=== PATIENT | female | born 1980 | race Caucasian/White ===

== ENCOUNTER 2020-05-19 11:36 | Outpatient (CLI) | payer OTHER, SELFPAY ==
--- NOTE | ~2020-05-19 | XR_ITS ---
EXAMINATION: XR knee LT 2V DATE: 05/19/2020 12:17 INDICATION: Left knee pain. TECHNIQUE: 2 views of left knee were obtained. COMPARISON: None. FINDINGS: Bone alignment is normal. No fracture. There is mild tricompartmental osteoarthritis. No kn ee joint effusion. IMPRESSION: 1. Mild left knee osteoarthritis. Reviewed, dictated and finalized at location A. [employer] LAWYER
== END 2020-05-19 11:37 | disposition home or self-care (01) ==
PROVIDERS: PCP Nurse Practitioner Family; Visit Provider Nurse Practitioner Family
DX: M25.562 Pain in left knee (principal)
CPT/HCPCS: 73560

== ENCOUNTER 2020-08-18 11:45 | Outpatient (CLI) | payer OTHER, SELFPAY ==
--- NOTE | ~2020-08-18 | XR_ITS ---
EXAMINATION: XR knee RT 3V DATE: 08/18/2020 13:28 INDICATION: Right knee pain. TECHNIQUE: 3 views of right knee were obtained. COMPARISON: None. FINDINGS: Bone alignment is normal. No fracture. There is mild tricompartmental osteoarthritis. There is a moderate-sized knee joint effusion. IMPRESSION: 1. Mild right knee osteoarthritis. 2. Moderate-sized right knee joint effusion. Reviewed, dictated and finalized at location A.
== END 2020-08-18 11:46 | disposition home or self-care (01) ==
LOC: CHSIMG 11:48
PROVIDERS: PCP Nurse Practitioner Family; Visit Provider Nurse Practitioner Family
DX: M25.561 Pain in right knee (principal)
CPT/HCPCS: 73562

== ENCOUNTER 2020-09-05 09:04 | Outpatient (CLI) | payer OTHER, SELFPAY ==
--- NOTE | ~2020-09-05 | MR_ITS ---
EXAMINATION: MR knee RT wo con DATE: 09/05/2020 10:29 INDICATION: Right knee joint effusion and pain. TECHNIQUE: Magnetic resonance imaging (MRI) of the right knee knee was performed without intravenous contrast. Sequences included axial PD-weighted FS FSE, coronal PD-weighted FSE and PD-weighted FS FSE , sagittal PD-weighted FSE, and sagittal T2-weighted FS FSE. COMPARISON: Right knee radiographs 08/18/2020 FINDINGS: Medial compartment: Medial meniscus is normal. There is deep partial thickness cartilage loss of tibial condyle anteromed ially with mild subchondral edema-like marrow signal intensity. There is full-thickness cartilage los s and deep partial thickness cartilage loss of femoral condyle involving the central and posterior ar ticular surface with mild subchondral edema-like marrow signal intensity. Lateral compartment: Lateral meniscus is normal. There is cartilage surface regularity of tibial condyle. Femoral cartilag e is normal. There are tiny marginal osteophytes. Patellofemoral compartment: There is deep partial thickness cartilage loss of patellar medial and lateral facets. There is cartil age surface irregularity of trochlea. Osteophytes are noted. Ligaments and tendons: Anterior and posterior cruciate ligaments are normal. Medial collateral ligament demonstrates increas ed signal intensity and surrounding edema, consistent with sprain. There are changes of prior sprain of fibular collateral ligament characterized by increased signal intensity proximally. There is mild patellar tendinopathy. Fluid: There is a moderate-sized knee joint effusion. There is trace fluid in a Malik's cyst. There is mild prepatellar and superficial infrapatellar bursitis. IMPRESSION: 1. Severe chondrosis of medial compartment, moderate chondrosis of patellofemoral compartment, and mi ld chondrosis of lateral compartment. 2. Moderate-sized knee joint effusion. Reviewed, dictated and finalized at location A. IMPRESSION: 1. Severe chondrosis of medial compartment, moderate chondrosis of patellofemor al compartment, and mild chondrosis of lateral compartment. 2. Moderate-sized knee joint effusion.
== END 2020-09-05 09:05 | disposition home or self-care (01) ==
LOC: CHSIMG 09:06
PROVIDERS: PCP Family Medicine; Visit Provider Family Medicine
DX: M25.461 Effusion, right knee (principal)
CPT/HCPCS: 73721

== ENCOUNTER 2020-11-29 23:29 | Emergency (ER) | payer OTHER, SELFPAY ==
[2020-11-29 23:29] VITALS: BP 130/92; PULSE 93; RESP 20; TEMP 36.3; O2SAT 97
--- NOTE | 2020-11-29 23:45 | ED.LOWEXIN ---
HPI - Extremity Injury (Lower) General Chief Complaint: Extremity Injury, Lower Stated Complaint: RIGHT KNEE PAIN Time Seen by Provider: 11/29/20 23:31 Source: patient and RN notes reviewed Mode of arrival: ambulatory Limitations: no limitations History of Present Illness complaint: knee injury Onset (ago): day(s) (3) Type of Injury: hyperflexion Place: home Severity: mild Severity scale (1-10): 6 Relieving factors: rest Exacerbating factors: weight bearing and movement Other symptoms: none Treatments prior to arrival: NSAIDS Related Data Allergies Allergy/AdvReac Type Severity Reaction Status Date / Time Penicillins Allergy Intermediate unknown Verified 11/29/20 22:29 Review of Systems Review of Systems: All systems reviewed & are unremarkable except as noted in HPI and below Constitutional: Constitutional: Reports as per HPI and Reports no additional constitutional complaints Eyes: Eyes: Reports as per HPI and Reports no additional eye complaints ENT: Reports system reviewed and no additional complaints, except as documented and Reports as per HPI Cardiovascular: Cardiovascular: Reports as per HPI and Reports no additional cardiovascular complaints Respiratory: Respiratory: Reports as per HPI and Reports no additional respiratory complaints Gastrointestinal: Gastrointestinal: Reports as per HPI and Reports no additional gastrointestinal complaints Genitourinary: Genitourinary: Reports no additional female genitourinary complaints and Reports as per HPI Musculoskeletal: Musculoskeletal: Reports no additional musculoskeletal complaints and Reports as per HPI Integumentary/Breasts: Skin/Breast: Reports system reviewed and no additional complaints, except as docu and Reports as per HPI Neurologic: Reports system reviewed and no additional complaints, except as documented and Reports as per HPI Psychiatric: Psychiatric: Reports no additional psychiatric complaints and Reports as per HPI Endocrine: Endocrine: Reports no additional endocrine complaints and Reports as per HPI Hematologic/Lymphatic: Hematologic/Lymphatic: Reports no additional hematologic/lymphatic complaints and Reports as per HPI Allergic/Immunologic: Allergic/Immunologic: Reports no additional allergic/immunologic complaints and Reports as per HPI PMFSH Past Medical History Medical History (Updated 11/30/20 @ 00:09 by Jefe Casey MD) Acute sinusitis Asthma Knee sprain Mild sleep apnea Surgical History Surgical History No significant past surgical history Social History Social History Smoking status: Never smoker Tobacco type: cigarettes Exam Const: General: healthy appearing, no acute distress and alert Orientation/consciousness: patient oriented x3 HENMT: Head: normal to inspection Ears: external ears normal and TM's normal bilaterally General nose exam: Normal external nose present and Normal nares present Mouth: Yes moist mucous membranes Teeth and gingiva: dentition normal Eyes: General: appearance normal, both eyes and all related structures Conjunctivae: conjunctivae normal Pupils: Equal, round and reactive pupils present EOM: EOMs intact bilaterally Neck: Neck: normal visual inspection Chest: Chest palpation & inspection: normal inspection of the chest Resp: Effort & Inspection: normal respiratory effort Auscultation: clear to auscultation bilaterally Cardio: Rate: regular rate Rhythm: regular rhythm GI: GI Palp: Yes Soft to palpation Percussion: Yes normal to percussion Auscultation: normal bowel sounds : General: Yes no CVA tenderness Back/Spine/Pelvis: Back: no CVA tenderness Skin: General skin exam: normal color Rashes: no rashes Neuro: General: patient oriented x3, moves all extremities, no focal motor deficits and CN's II-XI intact bilaterally Extrem: General: normal to
[2020-11-29] MEDS: KETOROLAC (*BKC) 60 MG/2 ML VIAL IM (23:50)
[2020-11-29 23:55] VITALS: BP 130/92; PULSE 93; RESP 20; TEMP 36.6; O2SAT 97
--- NOTE | 2020-11-30 00:19 | PC.NURSE ---
RN WALKED PT OUT TO PERSONAL VEHICLE. TOLERATED WELL.
== END 2020-11-30 00:19 | disposition home or self-care (01) ==
PROVIDERS: Emergency Provider Emergency Medicine; PCP Nurse Practitioner Family
DX: S83.8X1A Sprain of other specified parts of right knee, initial encounter (principal)
CPT/HCPCS: 96372; 99283; J1885

== ENCOUNTER 2021-04-08 11:53 | Outpatient (CLI) | payer OTHER, SELFPAY ==
[2021-04-08 14:24] LABS: SARS-CoV-2 RNA PCR Negative (Negative)
== END 2021-04-08 11:54 | disposition home or self-care (01) ==
LOC: CHSLAB 11:56
PROVIDERS: PCP Nurse Practitioner Family; Visit Provider Nurse Practitioner Family
DX: Z20.822 Contact with and (suspected) exposure to COVID-19 (principal)
CPT/HCPCS: C9803; U0003; U0005

== ENCOUNTER 2021-04-26 12:15 | Outpatient (CLI) | payer OTHER, SELFPAY ==
[2021-04-26 14:36] LABS: SARS-CoV-2 RNA PCR Positive (Negative)
== END 2021-04-26 12:16 | disposition home or self-care (01) ==
LOC: CHSLAB 12:17
PROVIDERS: PCP Family Medicine; Visit Provider Family Medicine
DX: U07.1 COVID-19 (principal)
CPT/HCPCS: C9803; U0003; U0005

== ENCOUNTER 2021-05-03 12:12 | Outpatient (CLI) | payer OTHER, SELFPAY ==
[2021-05-03 12:44] LABS: Basophils Absolute Auto 0.01 K/mm3 (0.00-0.10); Basophils Percent Auto 0.1 % (0.0-1.0); Eosinophils Absolute Auto 0.06 K/mm3 (0.02-0.50); Eosinophils Percent Auto 0.7 % (1.0-6.0); Hematocrit 33.3 % (35.0-49.0); Hemoglobin 9.8 g/dL (12.0-15.0); Immature Granulocyte Absolute 0.02 K/mm3 (0.00-0.00); Immature Granulocyte Percent A 0.2 % (0.0-0.0); Lymphocytes Absolute Auto 1.53 K/mm3 (1.10-4.50); Lymphocytes Percent Auto 18.4 % (18.0-42.0); Mean Corpuscular HGB Conc 29.4 g/dL (32.0-36.0); Mean Corpuscular Hemoglobin 22.2 pg (27.0-31.0); Mean Corpuscular Volume 75.3 fL (78.0-102.0); Mean Platelet Volume 10.2 fl (9.2-11.8); Monocytes Absolute Auto 0.67 K/mm3 (0.10-0.90); Monocytes Percent Auto 8.1 % (2.0-11.0); Neutrophils Percent Auto 72.5 % (50.0-70.0); Platelet Count Result 362 K/mm3 (150-420); Red Blood Count 4.42 M/mm3 (4.20-5.40); Red Cell Distribution Width 16.3 % (11.6-14.4); White Blood Count 8.3 K/mm3 (4.8-10.8)
[2021-05-03 13:25] LABS: Alanine Aminotransferase 17 U/L (14-59); Albumin Level 3.6 g/dL (3.4-5.0); Alkaline Phosphatase 89 U/L (46-116); Anion Gap 9 mmol/L (8-16); Aspartate Amino Transferase 13 U/L (15-37); Bilirubin,Total 0.3 mg/dL (0.00-1.00); Blood Urea Nitrogen 6 mg/dL (7-18); Calcium 8.8 mg/dL (8.5-10.1); Carbon Dioxide 28 mmol/L (21-32); Chloride 100 mmol/L (98-108); Estimated Glomerular Filt Rate > 60; Glucose 95 mg/dL (70-99); Magnesium 2.3 mg/dL (1.8-2.4); Osmolality Calculated 281 mOsm/kg (285-295); Potassium 3.9 mmol/L (3.5-5.1); Sodium 137 mmol/L (136-145); Total Protein 7.4 g/dL (6.4-8.2); Vitamin B12 268 pg/mL (193-986)
[2021-05-03 16:10] LABS: Immature Reticulocyte Fraction 24.2 % (2.0-16.52); Reticulocyte Hemoglobin Conten 24.1 pg (28.0-35.0); Reticulocyte Percent 0.98 % (0.50-1.50); Reticulocytes Absolute 0.04 M/mm3 (0.02-0.1)
[2021-05-03 16:31] LABS: Ferritin 19 ng/mL (8-252)
[2021-05-03 17:40] LABS: Iron 16 ug/dL (50-170); Percent Iron Saturation 4 % (12-57)
[2021-05-06 03:00] LABS: Vitamin D 25 Hydroxy 34 ng/mL (30-100)
[2021-05-06 12:04] LABS: Red Blood Cell Folate 733 ng/mL RBC (>280)
== END 2021-05-03 12:13 | disposition home or self-care (01) ==
LOC: CHSLAB 12:17
PROVIDERS: PCP Nurse Practitioner Family; Visit Provider Nurse Practitioner Family
DX: R53.1 Weakness (principal); D64.9 Anemia, unspecified; Z79.899 Other long term (current) drug therapy
CPT/HCPCS: 36415; 80053; 82306; 82607; 82728; 82747; 83540; 83550; 83735; 85025; 85046

== ENCOUNTER 2022-12-08 16:46 | Outpatient (CLI) | payer OTHER, SELFPAY ==
[2022-12-08 17:33] LABS: Strep Group A RT-PCR DETECTED (Negative)
== END 2022-12-08 16:47 | disposition home or self-care (01) ==
LOC: CHSLAB 16:47
PROVIDERS: PCP Nurse Practitioner Family; Visit Provider Nurse Practitioner Family
DX: J02.9 Acute pharyngitis, unspecified (principal)
CPT/HCPCS: 87651

== ENCOUNTER 2023-01-17 11:44 | Outpatient (CLI) | payer OTHER, SELFPAY ==
[2023-01-17 11:58] LABS: Basophils Absolute Auto 0.01 K/mm3 (0.00-0.10); Basophils Percent Auto 0.1 % (0.0-1.0); Eosinophils Absolute Auto 0.08 K/mm3 (0.02-0.50); Eosinophils Percent Auto 1.1 % (1.0-6.0); Hemoglobin 9.7 g/dL (12.0-15.0); Immature Granulocyte Absolute 0.03 K/mm3 (0.00-0.00); Immature Granulocyte Percent A 0.4 % (0.0-0.0); Lymphocytes Absolute Auto 1.49 K/mm3 (1.10-4.50); Lymphocytes Percent Auto 20.5 % (18.0-42.0); Mean Corpuscular HGB Conc 30.3 g/dL (32.0-36.0); Mean Corpuscular Hemoglobin 23.4 pg (27.0-31.0); Mean Corpuscular Volume 77.3 fL (78.0-102.0); Mean Platelet Volume 10.2 fl (9.2-11.8); Monocytes Absolute Auto 0.64 K/mm3 (0.10-0.90); Monocytes Percent Auto 8.8 % (2.0-11.0); Neutrophils Percent Auto 69.1 % (50.0-70.0); Platelet Count Result 334 K/mm3 (150-420); Red Blood Count 4.14 M/mm3 (4.20-5.40); Red Cell Distribution Width 16.6 % (11.6-14.4); White Blood Count 7.3 K/mm3 (4.8-10.8)
[2023-01-17 12:38] LABS: Hemoglobin A1C 6.2 % (<5.7)
[2023-01-17 12:44] LABS: Carbon Dioxide 26 mmol/L (21-32); Chloride 105 mmol/L (98-108); Sodium 138 mmol/L (136-145)
[2023-01-17 12:45] LABS: Albumin Level 3.3 g/dL (3.4-5.0); Alkaline Phosphatase 84 U/L (46-116); Anion Gap 7 mmol/L (8-16); Aspartate Amino Transferase < 10 U/L (15-37); Bilirubin,Total 0.4 mg/dL (0.00-1.00); Blood Urea Nitrogen 11 mg/dL (7-18); Estimated Glomerular Filt Rate > 60; Glucose 99 mg/dL (70-99); Osmolality Calculated 285 mOsm/kg (285-295); Total Protein 6.7 g/dL (6.4-8.2)
[2023-01-17 12:57] LABS: Alanine Aminotransferase 14 U/L (14-59)
[2023-01-18 14:23] LABS: Immature Reticulocyte Fraction 22.6 % (2.0-16.52); Reticulocyte Percent 1.58 % (0.50-1.50); Reticulocytes Absolute 0.07 M/mm3 (0.02-0.1)
[2023-01-18 14:51] LABS: Folic Acid 11.6 ng/mL (8.6->20); Iron 21 ug/dL (50-170); Percent Iron Saturation 5 % (12-57); Vitamin B12 117 pg/mL (193-986)
== END 2023-01-17 11:45 | disposition home or self-care (01) ==
LOC: CHSLAB 11:47
PROVIDERS: PCP Nurse Practitioner Family; Visit Provider Nurse Practitioner Family
DX: R10.811 Right upper quadrant abdominal tenderness (principal); R53.1 Weakness; D64.9 Anemia, unspecified; Z83.3 Family history of diabetes mellitus
CPT/HCPCS: 36415; 80053; 82607; 82746; 83036; 83540; 83550; 85025; 85046

== ENCOUNTER 2023-01-31 07:53 | Outpatient (CLI) | payer OTHER, SELFPAY ==
--- NOTE | ~2023-01-31 | US_ITS ---
US abdomen complete EXAMINATION: US Abdomen Complete INDICATION: Right upper quadrant pain PROCEDURE: Realtime High Resolution abdomen ultrasound. COMPARISON: No prior studies for comparison FINDINGS: Gallbladder within normal limits. No gallstones, pericholecystic fluid, gallbladder wall t hickening or biliary dilatation. Common bile duct measures 2.4 mm. Liver echotexture is increased, consistent with fatty infiltration.. Pancreas within normal limits. Pancreatic tail is obscured by bowel gas. Spleen is upper normal measuring 12.7 cm. Renal echotextu re is within normal limits bilaterally without hydronephrosis, contour deforming mass or renal stone. Right kidney measures 10 cm. Left kidney measures 11.1 cm. There is a left renal cyst measuring 1.9 cm. Visualized aspects of the aorta and IVC are within normal limits. Portal vein is patent. No sonograph ic Bal's sign indicated by the technologist. IMPRESSION: 1: Hepatic steatosis. 2: Left renal cyst measuring 1.9 cm. Reviewed, dictated and finalized at location L.
[2023-01-31 08:16] VITALS: BMI 37.0
[2023-01-31 08:29] VITALS: BP 121/78; PULSE 72; RESP 14; TEMP 36.6; O2SAT 100
[2023-01-31] MEDS: IRON SUCROSE COMPLEX 300 MG in SODIUM CHLORIDE 0.9% IV 250 ML 166.67 MG IVPB (08:30)
--- NOTE | 2023-01-31 10:06 | PC.NURSE ---
Patient here for #1 of 3 IV Venofer infusions. Education given. All concerns answered. IV Venofer administered. SEE MAR. Tolerated well. Safe exit hospital per self/ambulatory. Will return 02/02/23 at 4:30 pm for #2.
== END 2023-01-31 07:54 | disposition home or self-care (01) ==
LOC: CHSTREATRM 07:55
PROVIDERS: PCP Nurse Practitioner Family; Visit Provider Nurse Practitioner Family
DX: R10.811 Right upper quadrant abdominal tenderness (principal); D50.9 Iron deficiency anemia, unspecified
CPT/HCPCS: 76700; 96365; 96366; J1756; J7050

== ENCOUNTER 2023-02-02 17:24 | Outpatient (CLI) | payer OTHER, SELFPAY ==
[2023-02-02] MEDS: IRON SUCROSE COMPLEX 200 MG in SODIUM CHLORIDE 0.9% IV 250 ML 250 MG IVPB (18:00)
--- NOTE | 2023-02-02 18:04 | PC.NURSE ---
Patient arrived at 1730 instead of 1830 due to traffic. 22 gauge IV inserted in x1 attempt to right upper arm. IV infusion stated. Pateint denies changes in medications.
--- NOTE | 2023-02-02 18:39 | PC.NURSE ---
Patient watching TV and sitting in recliner. Denies any problems. Requested to use bathroom Nurse assisted to bathroom.
--- NOTE | 2023-02-02 19:10 | PC.NURSE ---
Patient's IV infusion completed. Patient denied any pain or SOB. IV site discontinued with IV intact. Pressure applied to site then pressure dressing applied. Patient able to ambulate to car.
== END 2023-02-02 17:25 | disposition home or self-care (01) ==
LOC: CHSTREATRM 17:26
PROVIDERS: PCP Nurse Practitioner Family; Visit Provider Nurse Practitioner Family
DX: D50.9 Iron deficiency anemia, unspecified (principal)
CPT/HCPCS: 96365; J1756; J7050

== ENCOUNTER 2023-02-09 15:30 | Outpatient (CLI) | payer OTHER, SELFPAY ==
--- NOTE | 2023-02-09 16:25 | PC.NURSE ---
Patient here for IV Venofer. Tolerated IV start well. Sitting up in chair resting. Call light and belongings at side.
[2023-02-09] MEDS: IRON SUCROSE COMPLEX 200 MG in SODIUM CHLORIDE 0.9% IV 250 ML 250 MG IVPB (16:33)
--- NOTE | 2023-02-09 17:40 | PC.NURSE ---
Patient tolerated infusion well. IV site discontinued, catheter removed tip intact. dressing applied to site. Patient denies any needs at this time. Left floor ambulatory.
== END 2023-02-09 15:31 | disposition home or self-care (01) ==
LOC: CHSTREATRM 02-10 13:12
PROVIDERS: PCP Nurse Practitioner Family; Visit Provider Nurse Practitioner Family
DX: D50.9 Iron deficiency anemia, unspecified (principal)
CPT/HCPCS: 96365; J1756; J7050

== ENCOUNTER 2023-02-14 11:45 | Outpatient (CLI) | payer OTHER, SELFPAY ==
[2023-02-14 12:48] LABS: Iron 45 ug/dL (50-170); Percent Iron Saturation 13 % (12-57); Vitamin B12 165 pg/mL (193-986)
== END 2023-02-14 11:46 | disposition home or self-care (01) ==
LOC: CHSLAB 11:48
PROVIDERS: PCP Nurse Practitioner Family; Visit Provider Nurse Practitioner Family
DX: E53.8 Deficiency of other specified B group vitamins (principal); D50.9 Iron deficiency anemia, unspecified
CPT/HCPCS: 36415; 82607; 83540; 83550

== ENCOUNTER 2023-03-27 08:02 | Emergency (ER) | payer OTHER, SELFPAY ==
[2023-03-27] VITALS (8 sets, daily range): BP systolic 122–140; BP diastolic 72–92; PULSE 79–85; RESP 16–18; TEMP 36.7–36.8; O2SAT 98–100
--- NOTE | ~2023-03-27 | CT_ITS ---
CT of the Abdomen and Pelvis: Indication: Abdominal pain Technique: 2.5 mm axial scans were obtained through the abdomen and pelvis following intravenous adm inistration of 100 cc of Omnipaque 350. Dose reduction technique was used on this scan by utilizing a utomated exposure control and iterative reconstruction technique. The dose-length product (DLP) was 1 151.90 mGy-cm. Findings: Scans through the lung bases are unremarkable. The liver, spleen, pancreas, gallbladder, adrenals and kidneys are within normal limits. No evidence of aortic aneurysm. No lymphadenopathy. There is probable minimal wall thickening of sigmoid colon, with minimal pericolonic stranding. No ab scess or free air. No bowel obstruction. Images through the pelvis were performed. Urinary bladder unremarkable. IUD in place. No adnexal mass seen. There is trace pelvic free fluid. Impression: Suspected minimal acute sigmoid diverticulitis. IUD in place. Trace pelvic free fluid. Reviewed, dictated and finalized at [facility]. [employer] RESOURCE OFFICER Impression: Suspected minimal acute sigmoid diverticulitis. IUD in place. Trace pelvic free fluid.
[2023-03-27 08:32] LABS: Appearance Urine Clear (Clear); Bilirubin Urine Negative (Negative); Color Urine Light Yellow (Yellow); Glucose Urine UA Negative (Negative); Ketones Urine Negative (Negative); Leukocyte Esterase Ur Trace LEU/UL (Negative); Nitrate Urine Negative (Negative); Protein Urine Negative (Negative); Specific Grav Ur 1.025 (1.010-1.020); Urobilinogen Urine 0.2 mg/dL (0.2-1.0)
[2023-03-27 08:53] LABS: Basophils Absolute Auto 0.01 K/mm3 (0.00-0.10); Basophils Percent Auto 0.1 % (0.0-1.0); Eosinophils Absolute Auto 0.11 K/mm3 (0.02-0.50); Hematocrit 38.3 % (35.0-49.0); Immature Granulocyte Absolute 0.04 K/mm3 (0.00-0.00); Immature Granulocyte Percent A 0.4 % (0.0-0.0); Lymphocytes Absolute Auto 1.35 K/mm3 (1.10-4.50); Lymphocytes Percent Auto 12.2 % (18.0-42.0); Mean Corpuscular HGB Conc 31.3 g/dL (32.0-36.0); Mean Corpuscular Volume 82.9 fL (78.0-102.0); Mean Platelet Volume 10.2 fl (9.2-11.8); Monocytes Absolute Auto 0.47 K/mm3 (0.10-0.90); Monocytes Percent Auto 4.3 % (2.0-11.0); Neutrophils Absolute Auto 9.1 K/mm3 (1.7-7.2); Platelet Count Result 280 K/mm3 (150-420); Red Blood Count 4.62 M/mm3 (4.20-5.40); Red Cell Distribution Width 18.8 % (11.6-14.4); White Blood Count 11.1 K/mm3 (4.8-10.8)
[2023-03-27 08:59] LABS: Add Urine Microscopic? YES; Blood Urine Trace-lysed (Negative); RBC Urine 0-2 /hpf (0-2); WBC Urine 0-3 /hpf (0-3)
[2023-03-27 08:59] LABS: Pregnancy On Board Control Positive; Urine Pregnancy Test Negative
[2023-03-27 09:00] LABS: Bacteria Urine Trace /hpf; Mucus Urine Few /lpf; Squamous Epithelial Cell Urine Few /hpf (Few)
[2023-03-27 09:09] LABS: Alanine Aminotransferase 18 U/L (14-59); Albumin Level 3.4 g/dL (3.4-5.0); Alkaline Phosphatase 77 U/L (46-116); Anion Gap 3 mmol/L (8-16); Aspartate Amino Transferase 14 U/L (15-37); Bilirubin,Total 0.4 mg/dL (0.00-1.00); Blood Urea Nitrogen 8 mg/dL (7-18); Calcium 8.5 mg/dL (8.5-10.1); Carbon Dioxide 32 mmol/L (21-32); Chloride 102 mmol/L (98-108); Estimated Glomerular Filt Rate 55; Glucose 97 mg/dL (70-99); Osmolality Calculated 282 mOsm/kg (285-295); Sodium 137 mmol/L (136-145); Total Protein 6.9 g/dL (6.4-8.2)
--- NOTE | 2023-03-27 09:18 | ED.ABDPAIN ---
HPI - Abdominal Pain General Chief Complaint: Abdominal Pain Stated Complaint: abdominal pain Time Seen by Provider: 03/27/23 08:09 Source: patient Mode of arrival: ambulatory Limitations: no limitations History of Present Illness HPI narrative: 43 yo F with history of asthma presents to ER due to generalized abdominal pain but worst at the lower quadrants. Said she had right flank pain 4 days ago which has subsided but now having lower abdominal pain. Said she is nauseous. Said she had a bowel movement today but small. She denied any history of surgery in her abdomen. MD elicited complaint: abdominal pain Related Data Allergies Allergy/AdvReac Type Severity Reaction Status Date / Time Penicillins Allergy Intermediate unknown Verified 03/27/23 08:04 Review of Systems Constitutional: Constitutional: Reports as per HPI and Reports no additional constitutional complaints Eyes: Eyes: Reports as per HPI and Reports no additional eye complaints ENT: Reports system reviewed and no additional complaints, except as documented and Reports as per HPI Cardiovascular: Cardiovascular: Reports as per HPI and Reports no additional cardiovascular complaints Respiratory: Respiratory: Reports as per HPI and Reports no additional respiratory complaints Gastrointestinal: Gastrointestinal: Reports as per HPI and Reports no additional gastrointestinal complaints Genitourinary: Genitourinary: Reports as per HPI Musculoskeletal: Musculoskeletal: Reports no additional musculoskeletal complaints and Reports as per HPI Integumentary/Breasts: Skin/Breast: Reports system reviewed and no additional complaints, except as docu and Reports as per HPI Neurologic: Reports system reviewed and no additional complaints, except as documented and Reports as per HPI Psychiatric: Psychiatric: Reports no additional psychiatric complaints and Reports as per HPI Endocrine: Endocrine: Reports no additional endocrine complaints and Reports as per HPI Hematologic/Lymphatic: Hematologic/Lymphatic: Reports no additional hematologic/lymphatic complaints and Reports as per HPI Allergic/Immunologic: Allergic/Immunologic: Reports no additional allergic/immunologic complaints and Reports as per HPI PMFSH Past Medical History Medical History Acute sinusitis Asthma Knee sprain Mild sleep apnea Surgical History Surgical History No significant past surgical history Social History Social History Smoking status: Never smoker Tobacco type: cigarettes Exam Const: General: cooperative, healthy appearing, comfortable, no acute distress, well developed, alert, awake, average body habitus and well nourished Nutritional Appearance: average body habitus and well nourished Orientation/consciousness: oriented to person, oriented to place and oriented to time Limitations: no limitations HENMT: Head: normal to inspection Ears: hearing grossly normal bilaterally, external ears normal and TM's normal bilaterally Face/Nose/Sinus: Normal external nose present, Normal nares present, No nasal polyps present, Normal nasal mucous membranes and turbinates present, Normal septum present, No nasal discharge present, normal facial exam, sinuses nontender and face symmetric Face and sinus: normal facial exam, sinuses nontender and face symmetric Mouth: Yes Normal oral and palatal mucosa present, Yes lip normal, Yes tongue normal, Yes Normal salivary glands and ducts present, Yes oropharynx normal and Yes moist mucous membranes Teeth and gingiva: dentition normal and gingiva normal Throat: posterior oropharynx normal, tonsils normal and uvula midline Eyes: General: appearance normal, both eyes and all related structures Eyelids: eyelids normal Conjunctivae: conjunctivae normal Sclera: sclerae normal Cornea: corneas normal Pup
[2023-03-27] MEDS: SODIUM CHLORIDE 0.9% IV 1,000 ML 999 ML IV CONT (09:24)
[2023-03-27] MEDS: KETOROLAC 15 MG/ML VIAL (*BKC) IV PUSH (11:05)
== END 2023-03-27 11:28 | disposition home or self-care (01) ==
PROVIDERS: Emergency Provider Emergency Medicine; PCP Nurse Practitioner Family
DX: K57.92 Diverticulitis of intestine, part unspecified, without perforation or abscess without bleeding (principal)
CPT/HCPCS: 36415; 74177; 80053; 81001; 81025; 85025; 96361; 96374; 99284; J1885; J7030; Q9967

== ENCOUNTER 2023-04-21 16:34 | Outpatient (CLI) | payer OTHER, SELFPAY ==
[2023-04-21 16:55] LABS: Basophils Absolute Auto 0.03 K/mm3 (0.00-0.10); Basophils Percent Auto 0.4 % (0.0-1.0); Eosinophils Absolute Auto 0.23 K/mm3 (0.02-0.50); Eosinophils Percent Auto 2.8 % (1.0-6.0); Hematocrit 39.4 % (35.0-49.0); Hemoglobin 12.4 g/dL (12.0-15.0); Immature Granulocyte Absolute 0.02 K/mm3 (0.00-0.00); Immature Granulocyte Percent A 0.2 % (0.0-0.0); Lymphocytes Absolute Auto 2.12 K/mm3 (1.10-4.50); Lymphocytes Percent Auto 26.2 % (18.0-42.0); Mean Corpuscular HGB Conc 31.5 g/dL (32.0-36.0); Mean Corpuscular Volume 85.8 fL (78.0-102.0); Mean Platelet Volume 10.5 fl (9.2-11.8); Monocytes Absolute Auto 0.65 K/mm3 (0.10-0.90); Neutrophils Absolute Auto 5.1 K/mm3 (1.7-7.2); Neutrophils Percent Auto 62.4 % (50.0-70.0); Platelet Count Result 337 K/mm3 (150-420); Red Blood Count 4.59 M/mm3 (4.20-5.40); Red Cell Distribution Width 17.9 % (11.6-14.4); White Blood Count 8.1 K/mm3 (4.8-10.8)
[2023-04-21 16:58] LABS: Appearance Urine Clear (Clear); Bilirubin Urine Negative (Negative); Blood Urine 2+ (Negative); Color Urine Light Yellow (Yellow); Glucose Urine UA Negative (Negative); Ketones Urine Negative (Negative); Leukocyte Esterase Ur Trace LEU/UL (Negative); Nitrate Urine Negative (Negative); Protein Urine Negative (Negative); Specific Grav Ur >= 1.030 (1.010-1.020); Urobilinogen Urine 0.2 mg/dL (0.2-1.0)
[2023-04-21 17:13] LABS: Add Urine Microscopic? YES; Bacteria Urine 1+ /hpf; Squamous Epithelial Cell Urine Few /hpf (Few); WBC Urine 0-3 /hpf (0-3)
[2023-04-21 17:33] LABS: Albumin Level 3.8 g/dL (3.4-5.0); Anion Gap 5 mmol/L (8-16); Blood Urea Nitrogen 13 mg/dL (7-18); Carbon Dioxide 33 mmol/L (21-32); Chloride 101 mmol/L (98-108); Estimated Glomerular Filt Rate 55; Glucose 97 mg/dL (70-99); Iron 39 ug/dL (50-170); Osmolality Calculated 288 mOsm/kg (285-295); Potassium 4.2 mmol/L (3.5-5.1); Sodium 139 mmol/L (136-145)
== END 2023-04-21 16:35 | disposition home or self-care (01) ==
LOC: CHSLAB 16:36
PROVIDERS: PCP Nurse Practitioner Family; Visit Provider Nurse Practitioner Family
DX: R10.9 Unspecified abdominal pain (principal); D50.9 Iron deficiency anemia, unspecified
CPT/HCPCS: 36415; 80069; 81001; 83540; 85025

== ENCOUNTER 2023-04-27 14:51 | Outpatient (CLI) | payer OTHER, SELFPAY ==
--- NOTE | ~2023-04-27 | US_ITS ---
EXAMINATION: US renal BI DATE: 04/27/2023 15:16 INDICATION: Hematuria. TECHNIQUE: Multiple ultrasound grayscale images of the kidneys were obtained. COMPARISON: CT abdomen and pelvis 03/27/2023 FINDINGS: The right kidney measures 12.5 x 4.3 x 3.9 cm. The left kidney measures 11.8 x 4.1 x 4.7 cm. The kidn eys demonstrate normal parenchymal echogenicity. There is cortical thinning of left kidney. There is no hydronephrosis. The bladder is normal. IMPRESSION: 1. Cortical thinning of left kidney. Reviewed, dictated and finalized at location E. TION CLERK
== END 2023-04-27 14:52 | disposition home or self-care (01) ==
LOC: CHSIMG 14:52
PROVIDERS: PCP Nurse Practitioner Family; Visit Provider Nurse Practitioner Family
DX: R10.9 Unspecified abdominal pain (principal); N28.9 Disorder of kidney and ureter, unspecified
CPT/HCPCS: 76775; 87086

== ENCOUNTER 2023-08-23 05:51 | Day surgery (SDC) | payer OTHER, SELFPAY ==
[2023-07-18 09:36] VITALS: BMI 35.5
[2023-08-09 07:20] VITALS: BMI 37.0
[2023-08-23 06:32] VITALS: BMI 36.6
[2023-08-23 06:33] VITALS: BP 133/81; PULSE 76; RESP 14; TEMP 36.9; O2SAT 99
--- NOTE | 2023-08-23 06:58 | WPDANESEPPF ---
Anes - Initial Pre Proc Eval Procedure: Operation Date: 08/23/23 07:30 Proposed Procedures p Diagnostic Colonoscopy - Rachid Acosta MD Date/Time: 08/23/23 06:58 Surgeon: Rachid Acosta MD Pre Op Diagnosis: Diverticulities of intestine part unspecified w/o Patient Data Age: 43 Gender: F Height: 1.7 m Weight: 106.2 kg Last Vital Signs Temp 36.9 C 08/23/23 06:33 Pulse 76 08/23/23 06:33 Resp 14 08/23/23 06:33 BP 133/81 08/23/23 06:33 Pulse Ox 99 08/23/23 06:33 O2 Del Method Room Air 08/23/23 06:33 Allergies Allergy/AdvReac Type Severity Reaction Status Date / Time Penicillins Allergy Intermediate unknown Verified 08/23/23 06:21 Home Medications Medication Instructions Recorded Confirmed Type inhalational spacing device #1 ea 08/24/21 07/18/23 Rx (Aerochamber Plus Flow-Vu) sodium,potassium,mag sulfates 17.5 See Rx Instructions PO .COMPLEX 07/18/23 08/09/23 Rx gram-3.13 gram-1.6 gram oral soln #354 mL (Suprep Bowel Prep Kit) Advair Diskus 500 mcg-50 mcg/dose See Rx Instructions .Route 07/25/23 08/23/23 Rx powder for inhalation (fluticasone .COMPLEX #60 ea propion-salmeterol) albuterol sulfate 90 mcg/actuation See Rx Instructions .Route 08/21/23 Rx aerosol inhaler .COMPLEX #9 grams Patient hx anesthesia problems: none Family hx anesthesia problems: none Results Review: All pre-operative results and documents have been reviewed as part of the pre-operative evaluation. [facility] Past Medical History Medical History Acute sinusitis Asthma Knee sprain Mild sleep apnea Surgical History Surgical History No significant past surgical history Social History Social History (Updated 07/19/23 @ 08:12 by Renetta Trejo MA) Smoking status: Never smoker Tobacco type: cigarettes Alcohol intake: current Substance use: never Substance use type: does not use Do You Feel Safe in your Home?: Yes Lack of Transportation: No Lack of Food: Never True Current Housing: I Have Housing Concerned About Future Housing: No Difficulty Paying Gas/Electric Bills: No Difficulty Paying for Meds: No Currently Unemployed: No Education: Trade/Vocational Certificate Difficulty w/ Childcare or Family Care: No Living arrangements: with family Gender identity (if verbalized by the patient): Female Sexual Orientation (if Verbalized by the Patient): Straight or Heterosexual Spiritual care concerns: No Anes - Eval Final PreProcedure Day of Procedure 08/23/23 06:58 Patient weight: obese Heart: regular rate and rhythm Lungs: clear to auscultation Airway: Mallampati scale class II Neurological: alert and oriented Last oral intake: >/= 8 hours ASA classification: III Emergent: no Anesthetic plan: proceed Anesthesia type and monitoring: general GIVS and standard monitoring Results Review: All pre-operative results and documents have been reviewed as part of the pre-operative evaluation. Informed Consent: The patient's anesthetic plan and its attendant risks and benefits were discussed with the patient/family/POA. Questions were solicited and answers provided to the satisfaction of the patient/family/POA.
[2023-08-23] MEDS: LACTATED RINGERS 1,000 ML 150 ML IV CONT (07:00)
--- NOTE | 2023-08-23 07:13 | PM.HPGS ---
History of Present Illness History of Present Illness Consent: Risks, benefits, and alternatives have been discussed and questions answered. Patient agrees to proceed with procedure. Chief complaint: Neoplasia screening Narrative: Vianca Chang is a 43 year old female colonoscopy. Patient has never had a colonoscopy prior to this. Her current weight appetite and bowel movements are normal. She has a history of having had diverticulitis in March approximately 5 months ago. At that time had rather diffuse abdominal pain this resolved after course of antibiotics. . She does have an aunt and uncle with history of colon cancer but no first-degree relatives. Weight appetite and bowel movements are normal. Review of Systems Review of Systems: Review of systems noncontributory. [facility] Past Medical History Medical History Acute sinusitis Asthma Knee sprain Mild sleep apnea Surgical History Surgical History No significant past surgical history Social History Social History (Updated 07/19/23 @ 08:12 by Renetta Trejo MA) Smoking status: Never smoker Tobacco type: cigarettes Alcohol intake: current Substance use: never Substance use type: does not use Do You Feel Safe in your Home?: Yes Lack of Transportation: No Lack of Food: Never True Current Housing: I Have Housing Concerned About Future Housing: No Difficulty Paying Gas/Electric Bills: No Difficulty Paying for Meds: No Currently Unemployed: No Education: Trade/Vocational Certificate Difficulty w/ Childcare or Family Care: No Living arrangements: with family Gender identity (if verbalized by the patient): Female Sexual Orientation (if Verbalized by the Patient): Straight or Heterosexual Spiritual care concerns: No Meds Home Medications and Allergies Home Medications Medication Instructions Recorded Confirmed Type inhalational spacing device #1 ea 08/24/21 07/18/23 Rx (Aerochamber Plus Flow-Vu) sodium,potassium,mag sulfates 17.5 See Rx Instructions PO .COMPLEX 07/18/23 08/09/23 Rx gram-3.13 gram-1.6 gram oral soln #354 mL (Suprep Bowel Prep Kit) Advair Diskus 500 mcg-50 mcg/dose See Rx Instructions .Route 07/25/23 08/23/23 Rx powder for inhalation (fluticasone .COMPLEX #60 ea propion-salmeterol) albuterol sulfate 90 mcg/actuation See Rx Instructions .Route 08/21/23 Rx aerosol inhaler .COMPLEX #9 grams Allergies Allergy/AdvReac Type Severity Reaction Status Date / Time Penicillins Allergy Intermediate unknown Verified 08/23/23 06:21 Vital Signs Vital Signs - 24 hr 08/23/23 06:33 Temperature 98.5 F Pulse Rate 76 Respiratory Rate 14 Blood Pressure 133/81 Pulse Oximetry 99 Oxygen Delivery Room Air Exam Narrative: Physical exam reveals patient to be alert signs stable. HEENT exam is unremarkable. Patient is anicteric. Lungs are clear to auscultation and percussion. Heart is without murmur or extra sounds. Abdomen bowel sounds are present soft nontender with no organomegaly. Digital external rectal exam is normal. Assessment and Plan Assessment and plan (1) Colon cancer screening: Code(s): Z12.11 - Encounter for screening for malignant neoplasm of colon Status: Acute Assessment and Plan: Patient presents today for screening colonoscopy. She appears to be at average risk for colon polyps. Recent diverticulitis is resolved. High-fiber diet is advised. Further recommendations may be given after endoscopy.
[2023-08-23] MEDS: SIMETHICONE ORAL SUSPENSION 20 MG/0.3 ML 30 ML BOTTLE 0.6 ML IRRIGATION (07:25)
[2023-08-23 07:35] VITALS: BP 119/72; PULSE 88; RESP 16; O2SAT 100
[2023-08-23 07:45] VITALS: BP 110/88; PULSE 81; RESP 14; O2SAT 100
[2023-08-23 07:55] VITALS: BP 115/72; PULSE 76; RESP 15; O2SAT 100
--- NOTE | 2023-08-23 11:16 | WPDANESPN ---
Anes - Prog Note Post-Op Date/Time: 08/23/23 11:16 Cardiovascular status: normal Respiratory status: normal Airway patency: baseline Mental status: baseline Post-Op hydration status: normal Vital Signs: Last Vital Signs Temp 36.9 C 08/23/23 06:33 Pulse 76 08/23/23 07:55 Resp 15 08/23/23 07:55 BP 115/72 08/23/23 07:55 Pulse Ox 100 08/23/23 07:55 O2 Del Method Room Air 08/23/23 07:55 Pain Score (VAS): 0 I/O: Intake & Output 08/22/23 08/23/23 08/23/23 23:59 07:59 15:59 Intake Total 0 700 Balance 0 700 Post-procedural complaints: none Patient Feedback: Patient satisfied with anesthetic care. Other Findings: Patient vital signs back to baseline. Patient denies nausea and vomiting. Patient's pain under control. Patient OK for discharge.
== END 2023-08-23 08:11 | disposition home or self-care (01) ==
PROVIDERS: PCP Nurse Practitioner Family; Visit Provider Internal Medicine Gastroenterology
PROC: 0DJD8ZZ Inspection of Lower Intestinal Tract, Via Natural or Artificial Opening Endoscopic (ICD-10-PCS; CPT 45378; principal; 2023-08-23 07:30)
DX: Z12.11 Encounter for screening for malignant neoplasm of colon (principal); D12.5 Benign neoplasm of sigmoid colon; K57.30 Diverticulosis of large intestine without perforation or abscess without bleeding; K64.8 Other hemorrhoids
CPT/HCPCS: 45385

== ENCOUNTER 2023-08-23 07:00 | Outpatient (NON) | payer OTHER, SELFPAY | END 2023-08-23 07:01 | disposition home or self-care (01) | PROVIDERS: PCP Nurse Practitioner Family; Visit Provider Internal Medicine Gastroenterology | DX: Z12.11 Encounter for screening for malignant neoplasm of colon (principal) | CPT/HCPCS: 88305 ==

== ENCOUNTER 2023-11-21 15:26 | Outpatient (CLI) | payer OTHER, SELFPAY ==
[2023-11-21 16:05] LABS: Albumin Level 3.4 g/dL (3.4-5.0); Anion Gap 7 mmol/L (4-12); Blood Urea Nitrogen 16 mg/dL (7-18); Calcium 8.3 mg/dL (8.5-10.1); Carbon Dioxide 27 mmol/L (21-32); Chloride 101 mmol/L (98-108); Estimated Glomerular Filt Rate 55; Glucose 107 mg/dL (70-99); Osmolality Calculated 281 mOsm/kg (285-295); Phosphorus 3.6 mg/dL (2.6-4.7); Potassium 4.2 mmol/L (3.5-5.1); Sodium 135 mmol/L (136-145)
== END 2023-11-21 15:27 | disposition home or self-care (01) ==
PROVIDERS: PCP Nurse Practitioner Family; Visit Provider Internal Medicine Nephrology
DX: R79.89 Other specified abnormal findings of blood chemistry (principal)
CPT/HCPCS: 36415; 80069

== ENCOUNTER 2023-12-19 11:40 | Outpatient (CLI) | payer OTHER, SELFPAY ==
[2023-12-19 12:27] LABS: Albumin Level 3.5 g/dL (3.4-5.0); Anion Gap 5 mmol/L (4-12); Blood Urea Nitrogen 9 mg/dL (7-18); Calcium 8.9 mg/dL (8.5-10.1); Carbon Dioxide 32 mmol/L (21-32); Chloride 101 mmol/L (98-108); Estimated Glomerular Filt Rate > 60; Glucose 98 mg/dL (70-99); Osmolality Calculated 284 mOsm/kg (285-295); Phosphorus 3.6 mg/dL (2.6-4.7); Potassium 4.4 mmol/L (3.5-5.1); Sodium 138 mmol/L (136-145)
[2023-12-19 12:34] LABS: Sodium Urine Random 78 mmol/L (20-110)
[2023-12-19 13:12] LABS: Eosinophil Urine 0 % (0-0); Urine Eos QC 2nd Tech Confirmed
[2023-12-22 12:03] LABS: Creatinine, Random Urine 32 mg/dL (20-275); Total Prot/Creat ratio mg/mg 0.281 (0.024-0.184); Total Protein/Creatinine Ratio 281 mg/g creat (24-184)
[2023-12-22 15:18] LABS: Anti Glomerular Basement Memb <1.0 AI
[2023-12-23 10:14] LABS: ANCA Screen NEGATIVE (NEGATIVE)
[2023-12-27 04:28] LABS: Protein, Total 6.9 g/dL (6.1-8.1)
[2023-12-27 10:18] LABS: Albumin 3.9 g/dL (3.8-4.8); Alpha 1 Globulin 0.3 g/dL (0.2-0.3); Alpha 2 Globulin 0.7 g/dL (0.5-0.9); Beta 1 Globulin 0.6 g/dL (0.4-0.6); Gamma Globulin 1.2 g/dL (0.8-1.7)
== END 2023-12-19 11:41 | disposition home or self-care (01) ==
LOC: CHSLAB 11:42
PROVIDERS: PCP Nurse Practitioner Family; Visit Provider Internal Medicine Nephrology
DX: R79.89 Other specified abnormal findings of blood chemistry (principal); N28.9 Disorder of kidney and ureter, unspecified; N18.31 Chronic kidney disease, stage 3a
CPT/HCPCS: 36415; 80069; 82570; 83520; 84155; 84156; 84165; 84166; 84300; 85999; 86036; 86038; 86039; 86160; 86225

== ENCOUNTER 2024-01-01 09:58 | Outpatient (NON) | payer OTHER, SELFPAY ==
[2024-01-03 14:09] LABS: Complement C3 116 mg/dL (83-193)
== END 2024-01-01 09:59 | disposition home or self-care (01) ==
LOC: CHSLAB 10:01
PROVIDERS: Visit Provider Internal Medicine Nephrology
DX: R79.89 Other specified abnormal findings of blood chemistry (principal); N28.9 Disorder of kidney and ureter, unspecified; N18.31 Chronic kidney disease, stage 3a
CPT/HCPCS: 36415; 86160

== ENCOUNTER 2024-02-08 11:55 | Outpatient (CLI) | payer OTHER, SELFPAY ==
[2024-02-08 12:41] LABS: Strep Group A RT-PCR NOT DETECTED (Negative)
== END 2024-02-08 11:56 | disposition home or self-care (01) ==
PROVIDERS: PCP Nurse Practitioner Family; Visit Provider Nurse Practitioner Family
DX: J02.9 Acute pharyngitis, unspecified (principal)
CPT/HCPCS: 87651

== ENCOUNTER 2024-04-10 20:09 | Emergency (ER) | payer OTHER, SELFPAY ==
[2024-04-10] VITALS (14 sets, daily range): BP systolic 147–154; BP diastolic 81–89; PULSE 83–92; RESP 11–18; TEMP 36.6; O2SAT 95–100
--- NOTE | ~2024-04-10 | XR_ITS ---
EXAMINATION: XR chest 2V DATE: 04/10/2024 21:17 INDICATION: Chest pain. TECHNIQUE: Frontal and lateral views of the chest were obtained. COMPARISON: Chest 2 views 09/04/2017, CT abdomen and pelvis 03/27/2023 FINDINGS: There is no pneumonia, pleural effusion, or pneumothorax. The heart size is normal. IMPRESSION: 1. No acute cardiopulmonary disease. Reviewed, dictated and finalized at location A. TICS NURSE
--- NOTE | 2024-04-10 20:11 | ECG_ITS ---
Test Date: 2024-04-10 20:19:02 Measurements Intervals [place] Rate: 88 P: 55 AL: 136 QRS: 37 QRSD: 87 T: 40 QT: 354 QTc: 429 Interpretive Statements SINUS RHYTHM No previous ECG available for comparison Electronically Signed On 04-11-2024 15:53:[address] by Imtiaz Reynoso M.D.
[2024-04-10 20:31] LABS: Basophils Percent Auto 0.3 % (0.2-1.2); Eosinophils Absolute Auto 0.3 K/mm3 (0-0.3); Eosinophils Percent Auto 3.3 % (0-4.4); Hematocrit 36.9 % (37.0-47.0); Hemoglobin 11.5 g/dL (12.0-15.0); Immature Granulocyte Absolute 0.01 K/mm3 (0.00-0.031); Immature Granulocyte Percent A 0.1 % (0-0.5); Lymphocytes Absolute Auto 2.69 K/mm3 (0.9-3.2); Lymphocytes Percent Auto 30.3 % (18.3-44.2); Mean Corpuscular HGB Conc 31.2 g/dl (32-36); Mean Corpuscular Volume 83.5 fl (80-100); Mean Platelet Volume 10.4 fl (7.4-10.4); Monocytes Absolute Auto 0.6 K/mm3 (0.1-0.6); Monocytes Percent Auto 6.7 % (2.6-8.5); Neutrophils Absolute Auto 5.3 K/mm3 (1.3-6.7); Neutrophils Percent Auto 59.3 % (45.5-73.1); Platelet Count Result 346 k/mm3 (150-375); Red Blood Count 4.42 M/mm3 (4.2-5.4); Red Cell Distribution Width 15.3 % (11.5-14.5); White Blood Count 8.9 K/mm3 (4.5-10.0)
[2024-04-10 20:42] LABS: INR 0.9; Partial Thromboplastin Time 30.6 Seconds (22.3-36.8); Prothrombin Time 12.9 Seconds (11.1-14.7)
[2024-04-10 20:43] LABS: Alanine Aminotransferase 16 U/L (6-35); Albumin Level 4.3 g/dL (3.5-5.1); Alkaline Phosphatase 96 U/L (38-126); Anion Gap 7 mmol/L (4-12); Aspartate Amino Transferase 26 U/L (14-36); Bilirubin,Total 0.5 mg/dL (0.2-1.3); Blood Urea Nitrogen 18 mg/dL (7-17); Calcium 8.8 mg/dL (8.4-10.2); Carbon Dioxide 26 mmol/L (22-30); Chloride 103 mmol/L (98-107); Estimated CRCL calculation 76 ml/min; Estimated Glomerular Filt Rate 53; Glucose 120 mg/dL (65-110); Lipase 78 U/L (23-300); Sodium 136 mmol/L (137-145)
[2024-04-10 20:55] LABS: Troponin I < 0.012 ng/mL (0.000-0.034)
[2024-04-10] MEDS: ASPIRIN 81 MG CHEWABLE TABLET 324 MG PO (21:10)
[2024-04-10 21:13] LABS: D Dimer 0.29 ug/mL (<0.48)
--- NOTE | 2024-04-10 21:27 | ED_ITS ---
HPI - Chest Pain General Chief Complaint: Chest Pain <Mark Ward MD - Last Filed: 04/11/24 13:05> Stated Complaint: L. sided chest pain x45 minutes <Mark Ward MD - Last Filed: 04/11/24 13:05> Time Seen by Provider: 04/10/24 20:18 <Mark Ward MD - Last Filed: 04/11/24 13:05> History of Present Illness HPI narrative: 44-year-old female presents emergency department for evaluation for bilateral chest pressure with sharp pleuritic pain. Patient reports yesterday she did have some nasal congestion. Patient reports today she started having some right-sided chest pain and that radiated to the left. Patient does report muscular tenderness over chest and does report intermittent sharp pleuritic pain with deep inspiration. Patient denies any cough or congestion. Patient denies any falls or injuries. Patient denies any prior history of PE or DVT. Patient has no prior history of cancer, patient has no recent injury. Patient is not on any hormone therapy. <Mark Ward MD - Last Filed: 04/11/24 13:05> Related Data Allergies/Adverse Reactions: Allergies Allergy/AdvReac Type Severity Reaction Status Date / Time Penicillins Allergy Intermediate unknown Verified 04/10/24 20:10 <Mark Ward MD - Last Filed: 04/11/24 13:05> Review of Systems 2 Review of Systems: All systems reviewed & are unremarkable except as noted in HPI and below <Mark Ward MD - Last Filed: 04/11/24 13:05> [facility] Past Medical History Medical History: Medical History Acute sinusitis Asthma Knee sprain Mild sleep apnea <Mark Ward MD - Last Filed: 04/11/24 13:05> Surgical History Surgical History: Surgical History No significant past surgical history <Mark Ward MD - Last Filed: 04/11/24 13:05> Social History Social History: Social History Smoking status: Never smoker Tobacco type: cigarettes Alcohol intake: current Substance use: never Substance use type: does not use Do You Feel Safe in your Home?: Yes Lack of Transportation: No Lack of Food: Never True Current Housing: I Have Housing Concerned About Future Housing: No Difficulty Paying Gas/Electric Bills: No Difficulty Paying for Meds: No Currently Unemployed: No Education: Trade/Vocational Certificate Difficulty w/ Childcare or Family Care: No Living arrangements: with family Gender identity (if verbalized by the patient): Female Sexual Orientation (if Verbalized by the Patient): Straight or Heterosexual Spiritual care concerns: No <Mark Ward MD - Last Filed: 04/11/24 13:05> Exam 2 Narrative: APPEARANCE: Well appearing, no pain, no distress, well-nourished. HEAD: normocephalic, atraumatic. EYES: PERRLA/EOMI, conjunctivae clear. NOSE: Normal no drainage EARS:TMS clear with good light reflex. THROAT: Pharynx clear, no exudate. NECK: Supple. No adenopathy, no masses. RESPIRATORY: Airway patent, respirations nonlabored. Clear to auscultation bilaterally, no rales, rhonchi, wheezing. CARDIOVASCULAR: Regular rate and rhythm without murmurs rubs or gallops. ABDOMINAL: Soft, nontender, nondistended, normal bowel sounds MUSCULOSKELETAL: Moves all extremities. Strength/ROM intact, No edema, No calf tenderness. NEURO: Alert. Cranial nerves II through XII intact. Grossly intact SKIN: Warm, dry. Normal Color <Mark Ward MD - Last Filed: 04/11/24 13:05> Course Vital Signs Vital signs: Vital Signs Temperature 97.9 F 04/10/24 20:14 Pulse Rate 86 04/10/24 20:14 Respiratory Rate 13 04/10/24 20:14 Blood Pressure 154/89 H 04/10/24 20:14 Pulse Oximetry 100 04/10/24 20:14 Oxygen Delivery Room Air 04/10/24 20:14 Temperature 97.9 F 04/10/24 20:14 Pulse Rate 82 04/11/24 00:41 Respiratory Rate 15 04/11/24 00:41 Blood Pressure 128/71 04/11/24 00:41 Pulse Oximetry 100 04/11/24 00:41 Oxygen Delivery Room Air 04/10/24 20:25 <Mark Ward MD - Last Filed: 04/11/24 13:05> Vital Signs Temperature 97.9 F 04/10/24 20:14 Pulse Rate 86 04/10/24 20:14 Respiratory Rate 13 04/10/24 20:14 Blood Pressure 154/89 H 04/10/24 20:14 Pulse Oximetry 100 04/10/24 20:14 Oxygen Delivery Room Air 04/10/24 20:14 Temperature 97.9 F 04/10/24 20:14 Pulse Rate 82 04/11/24 00:41 Respiratory Rate 15 04/11/24 00:41 Blood Pressure 128/71 04/11/24 00:41 Pulse Oximetry 100 04/11/24 00:41 Oxygen Delivery Room Air 04/10/24 20:25 <Ines Tsai PA-C - Last Filed: 04/11/24 00:36> MDM - Chest Pain MDM Narrative Medical decision making narrative: 44-year-old female presents emergency department for evaluation for chest pressure and chest pain. Patient is afebrile with no leukocytosis and hemoglobin of 11.5. Patient's INR is 0.9, patient's D-dimer was within normal limits at 0.29. Patient distal troponin was not elevated and patient has no significant acute abnormalities on her CMP. Chest x-ray shows no acute cardiopulmonary abnormality. EKG shows normal sinus rhythm with no evidence of acute STEMI. Patient's Delta troponin was pending at time of sign-out. <Mark Ward MD - Last Filed: 04/11/24 13:05> 44-year-old female presents emergency department for evaluation for chest pressure and chest pain. Patient is afebrile with no leukocytosis and hemoglobin of 11.5. Patient's INR is 0.9, patient's D-dimer was within normal limits at 0.29. Patient initial troponin was not elevated and patient has no significant acute abnormalities on her CMP. Chest x-ray shows no acute cardiopulmonary abnormality. EKG shows normal sinus rhythm with no evidence of acute STEMI. Patient's delta troponin was pending at time of sign-out. 3 hour troponin negative. Patient discharged to have further outpatient follow up <Ines Tsai PA-C - Last Filed: 04/11/24 00:36> Differential Diagnosis Differential diagnosis: Likely pneumothorax, stable angina, unstable angina pectoris, atypical chest pain, costochondritis, chest pain and other <Mark Ward MD - Last Filed: 04/11/24 13:05> Lab Data Attestation: I reviewed the patient's lab results. <Mark Ward MD - Last Filed: 04/11/24 13:05> Result diagrams: 04/10/24 20:22 04/10/24 20:22 <Mark Ward MD - Last Filed: 04/11/24 13:05> Labs: Lab Results 04/10/24 04/10/24 04/10/24 Range/Units 20:20 20:22 22:15 WBC 8.9 (4.5-10.0) K/mm3 RBC 4.42 (4.2-5.4) M/mm3 Hgb 11.5 L (12.0-15.0) g/dL Hct 36.9 L (37.0-47.0) % MCV 83.5 (80-100) fl MCH 26.0 (26-34) pg MCHC 31.2 L (32-36) g/dl RDW 15.3 H (11.5-14.5) % Plt Count 346 (150-375) k/mm3 MPV 10.4 (7.4-10.4) fl Immature Gran % (Auto) 0.1 (0-0.5) % Neut % (Auto) 59.3 (45.5-73.1) % Lymph % (Auto) 30.3 (18.3-44.2) % [place] % (Auto) 6.7 (2.6-8.5) % Eos % (Auto) 3.3 (0-4.4) % Baso % (Auto) 0.3 (0.2-1.2) % Lymph # (Auto) 2.69 (0.9-3.2) K/mm3 [place] # (Auto) 0.6 (0.1-0.6) K/mm3 Eos # (Auto) 0.3 (0-0.3) K/mm3 Baso # (Auto) 0.0 (0.0-0.1) K/mm3 Abs Immat Gran (auto) 0.01 (0.00-0.031) K/mm3 Absolute Neuts (auto) 5.3 (1.3-6.7) K/mm3 Absolute Nucleated RBC 0.000 (0.0-0.012) K/mm3 Nucleated RBC % 0.0 (0.0-0.2) % PT 12.9 (11.1-14.7) Seconds INR 0.9 APTT 30.6 (22.3-36.8) Seconds D-Dimer 0.29 (<0.48) ug/mL Sodium 136 L (137-145) mmol/L Potassium 4.0 (3.4-5.0) mmol/L Chloride 103 (98-107) mmol/L Carbon Dioxide 26 (22-30) mmol/L Anion Gap 7 (4-12) mmol/L BUN 18 H (7-17) mg/dL Creatinine 1.10 H (0.7-1.0) mg/dL Estim Creat Clear Calc 76 ml/min Estimated GFR 53 L (59 - ) Glucose 120 H (65-110) mg/dL Calcium 8.8 (8.4-10.2) mg/dL Total Bilirubin 0.5 (0.2-1.3) mg/dL AST 26 (14-36) U/L ALT 16 (6-35) U/L Alkaline Phosphatase 96 (38-126) U/L Troponin I < 0.012 (0.000-0.034) ng/mL Total Protein 8.0 (6.3-8.2) g/dL Albumin 4.3 (3.5-5.1) g/dL Lipase 78 (23-300) U/L Influenza A (RT-PCR) Negative (Negative) Influenza B (RT-PCR) Negative (Negative) RSV (RT-PCR) Negative (Negative) SARS-CoV-2 RNA (RT-PCR) Negative (Negative) 04/10/24 Range/Units 23:31 WBC (4.5-10.0) K/mm3 RBC (4.2-5.4) M/mm3 Hgb (12.0-15.0) g/dL Hct (37.0-47.0) % MCV (80-100) fl MCH (26-34) pg MCHC (32-36) g/dl RDW (11.5-14.5) % Plt Count (150-375) k/mm3 MPV (7.4-10.4) fl Immature Gran % (Auto) (0-0.5) % Neut % (Auto) (45.5-73.1) % Lymph % (Auto) (18.3-44.2) % [place] % (Auto) (2.6-8.5) % Eos % (Auto) (0-4.4) % Baso % (Auto) (0.2-1.2) % Lymph # (Auto) (0.9-3.2) K/mm3 [place] # (Auto) (0.1-0.6) K/mm3 Eos # (Auto) (0-0.3) K/mm3 Baso # (Auto) (0.0-0.1) K/mm3 Abs Immat Gran (auto) (0.00-0.031) K/mm3 Absolute Neuts (auto) (1.3-6.7) K/mm3 Absolute Nucleated RBC (0.0-0.012) K/mm3 Nucleated RBC % (0.0-0.2) % PT (11.1-14.7) Seconds INR APTT (22.3-36.8) Seconds D-Dimer (<0.48) ug/mL Sodium (137-145) mmol/L Potassium (3.4-5.0) mmol/L Chloride (98-107) mmol/L Carbon Dioxide (22-30) mmol/L Anion Gap (4-12) mmol/L BUN (7-17) mg/dL Creatinine (0.7-1.0) mg/dL Estim Creat Clear Calc ml/min Estimated GFR (59 - ) Glucose (65-110) mg/dL Calcium (8.4-10.2) mg/dL Total Bilirubin (0.2-1.3) mg/dL AST (14-36) U/L ALT (6-35) U/L Alkaline Phosphatase (38-126) U/L Troponin I < 0.012 (0.000-0.034) ng/mL Total Protein (6.3-8.2) g/dL Albumin (3.5-5.1) g/dL Lipase (23-300) U/L Influenza A (RT-PCR) (Negative) Influenza B (RT-PCR) (Negative) RSV (RT-PCR) (Negative) SARS-CoV-2 RNA (RT-PCR) (Negative) <Mark Ward MD - Last Filed: 04/11/24 13:05> Lab Results 04/10/24 04/10/24 04/10/24 Range/Units 20:20 20:22 22:15 WBC 8.9 (4.5-10.0) K/mm3 RBC 4.42 (4.2-5.4) M/mm3 Hgb 11.5 L (12.0-15.0) g/dL Hct 36.9 L (37.0-47.0) % MCV 83.5 (80-100) fl MCH 26.0 (26-34) pg MCHC 31.2 L (32-36) g/dl RDW 15.3 H (11.5-14.5) % Plt Count 346 (150-375) k/mm3 MPV 10.4 (7.4-10.4) fl Immature Gran % (Auto) 0.1 (0-0.5) % Neut % (Auto) 59.3 (45.5-73.1) % Lymph % (Auto) 30.3 (18.3-44.2) % [place] % (Auto) 6.7 (2.6-8.5) % Eos % (Auto) 3.3 (0-4.4) % Baso % (Auto) 0.3 (0.2-1.2) % Lymph # (Auto) 2.69 (0.9-3.2) K/mm3 [place] # (Auto) 0.6 (0.1-0.6) K/mm3 Eos # (Auto) 0.3 (0-0.3) K/mm3 Baso # (Auto) 0.0 (0.0-0.1) K/mm3 Abs Immat Gran (auto) 0.01 (0.00-0.031) K/mm3 Absolute Neuts (auto) 5.3 (1.3-6.7) K/mm3 Absolute Nucleated RBC 0.000 (0.0-0.012) K/mm3 Nucleated RBC % 0.0 (0.0-0.2) % PT 12.9 (11.1-14.7) Seconds INR 0.9 APTT 30.6 (22.3-36.8) Seconds D-Dimer 0.29 (<0.48) ug/mL Sodium 136 L (137-145) mmol/L Potassium 4.0 (3.4-5.0) mmol/L Chloride 103 (98-107) mmol/L Carbon Dioxide 26 (22-30) mmol/L Anion Gap 7 (4-12) mmol/L BUN 18 H (7-17) mg/dL Creatinine 1.10 H (0.7-1.0) mg/dL Estim Creat Clear Calc 76 ml/min Estimated GFR 53 L (59 - ) Glucose 120 H (65-110) mg/dL Calcium 8.8 (8.4-10.2) mg/dL Total Bilirubin 0.5 (0.2-1.3) mg/dL AST 26 (14-36) U/L ALT 16 (6-35) U/L Alkaline Phosphatase 96 (38-126) U/L Troponin I < 0.012 (0.000-0.034) ng/mL Total Protein 8.0 (6.3-8.2) g/dL Albumin 4.3 (3.5-5.1) g/dL Lipase 78 (23-300) U/L Influenza A (RT-PCR) Negative (Negative) Influenza B (RT-PCR) Negative (Negative) RSV (RT-PCR) Negative (Negative) SARS-CoV-2 RNA (RT-PCR) Negative (Negative) 04/10/24 Range/Units 23:31 WBC (4.5-10.0) K/mm3 RBC (4.2-5.4) M/mm3 Hgb (12.0-15.0) g/dL Hct (37.0-47.0) % MCV (80-100) fl MCH (26-34) pg MCHC (32-36) g/dl RDW (11.5-14.5) % Plt Count (150-375) k/mm3 MPV (7.4-10.4) fl Immature Gran % (Auto) (0-0.5) % Neut % (Auto) (45.5-73.1) % Lymph % (Auto) (18.3-44.2) % [place] % (Auto) (2.6-8.5) % Eos % (Auto) (0-4.4) % Baso % (Auto) (0.2-1.2) % Lymph # (Auto) (0.9-3.2) K/mm3 [place] # (Auto) (0.1-0.6) K/mm3 Eos # (Auto) (0-0.3) K/mm3 Baso # (Auto) (0.0-0.1) K/mm3 Abs Immat Gran (auto) (0.00-0.031) K/mm3 Absolute Neuts (auto) (1.3-6.7) K/mm3 Absolute Nucleated RBC (0.0-0.012) K/mm3 Nucleated RBC % (0.0-0.2) % PT (11.1-14.7) Seconds INR APTT (22.3-36.8) Seconds D-Dimer (<0.48) ug/mL Sodium (137-145) mmol/L Potassium (3.4-5.0) mmol/L Chloride (98-107) mmol/L Carbon Dioxide (22-30) mmol/L Anion Gap (4-12) mmol/L BUN (7-17) mg/dL Creatinine (0.7-1.0) mg/dL Estim Creat Clear Calc ml/min Estimated GFR (59 - ) Glucose (65-110) mg/dL Calcium (8.4-10.2) mg/dL Total Bilirubin (0.2-1.3) mg/dL AST (14-36) U/L ALT (6-35) U/L Alkaline Phosphatase (38-126) U/L Troponin I < 0.012 (0.000-0.034) ng/mL Total Protein (6.3-8.2) g/dL Albumin (3.5-5.1) g/dL Lipase (23-300) U/L Influenza A (RT-PCR) (Negative) Influenza B (RT-PCR) (Negative) RSV (RT-PCR) (Negative) SARS-CoV-2 RNA (RT-PCR) (Negative) <Ines Tsai PA-C - Last Filed: 04/11/24 00:36> Imaging Data Radiologist's impression: Impressions Chest X-Ray 04/10/24 21:18 IMPRESSION: 1. No acute cardiopulmonary disease. <Mark Ward MD - Last Filed: 04/11/24 13:05> ECG Data EKG #1: EKG Interpretation: normal rate, sinus rhythm, no ectopy, no ST changes, normal QRS and NL axis <Mark Ward MD - Last Filed: 04/11/24 13:05> Critical Care Time Critical Care Time Critical Care Time: No <Ines Tsai PA-C - Last Filed: 04/11/24 00:36> Discharge Plan Discharge Clinical Impression: Chest pain Qualifiers: Chest pain type: unspecified Qualified Code(s): R07.9 - Chest pain, unspecified <Mark Ward MD - Last Filed: 04/11/24 13:05> Patient Disposition: Home, Self-Care <Mark Ward MD - Last Filed: 04/11/24 13:05> Condition: Stable <Mark Ward MD - Last Filed: 04/11/24 13:05> Instructions: Antibiotic Form, Chest Pain (ED) <Mark Ward MD - Last Filed: 04/11/24 13:05> Additional Instructions: ibuprofen for pain control. Have close follow-up with your primary care physician for additional outpatient cardiac testing. If you have any worsening symptoms then please call or return to the emergency department. <Mark Ward MD - Last Filed: 04/11/24 13:05> Patient Language: Lao <Mark Ward MD - Last Filed: 04/11/24 13:05> Prescriptions: No Action benzonatate 200 mg capsule 200 mg PO BID PRN (Reason: cough) Qty: 20 0RF prednisone 20 mg tablet 40 mg PO DAILY Qty: 10 0RF doxycycline monohydrate 100 mg capsule 100 mg PO BID Qty: 20 0RF budesonide 0.5 mg/2 mL suspension for nebulization 0.5 mg inhalation BID Qty: 120 11RF formoterol fumarate [Perforomist] 20 mcg/2 mL solution for nebulization 2 ml inhalation BID Qty: 120 0RF (DME) Aerochamber Plus Flow-Vu Spacer See Rx Instructions .ROUTE .MEDSUPPLY Qty: 1 11RF Rx Instructions: As directed fluticasone propion-salmeterol [Advair Diskus] 500-50 mcg/dose blister with device See Rx Instructions .ROUTE .COMPLEX Qty: 60 0RF Dose Instruction: INHALE 1 DOSE BY MOUTH EVERY 12 HOURS Rx Instructions: INHALE 1 DOSE BY MOUTH EVERY 12 HOURS albuterol sulfate 90 mcg/actuation HFA aerosol inhaler See Rx Instructions .ROUTE .COMPLEX Qty: 9 2RF Dose Instruction: INHALE 1 PUFF BY MOUTH EVERY 4 HOURS NEEDED FOR SHORTNESS OF BREATH OR WHEEZING Rx Instructions: INHALE 1 PUFF BY MOUTH EVERY 4 HOURS NEEDED FOR SHORTNESS OF BREATH OR WHEEZING <Mark Ward MD - Last Filed: 04/11/24 13:05> Follow-up/Referrals: iMsa Kim [employer]ER [Primary Care Provider] - 1 Week <Mark Ward MD - Last Filed: 04/11/24 13:05>
[2024-04-10 22:54] LABS: Influenza A QL RT-PCR Negative (Negative); Influenza B QL RT-PCR Negative (Negative); RSV RNA, RT-PCR Negative (Negative); SARS-CoV-2 RNA PCR Negative (Negative)
--- NOTE | 2024-04-10 23:34 | ECG_ITS ---
Test Date: 2024-04-10 23:35:11 Measurements Intervals [place] Rate: 79 P: 62 ID: [id number] QRS: 43 QRSD: 96 T: 42 QT: 374 QTc: 429 Interpretive Statements SINUS RHYTHM Compared to ECG 04/10/2024 20:19:02 No significant changes Electronically Signed On 04-11-2024 15:56:08 BUSINESS PROCESS COORDINATOR by Imtiaz Reynoso M.D.
[2024-04-10 23:58] LABS: Troponin I < 0.012 ng/mL (0.000-0.034)
[2024-04-11 00:41] VITALS: BP 128/71; PULSE 82; RESP 15; O2SAT 100
== END 2024-04-11 00:42 | disposition home or self-care (01) ==
PROVIDERS: Emergency Medicine; Emergency Provider Emergency Medicine; PCP Nurse Practitioner Family
DX: R07.89 Other chest pain (principal); Z20.822 Contact with and (suspected) exposure to COVID-19; J45.909 Unspecified asthma, uncomplicated; G47.30 Sleep apnea, unspecified
CPT/HCPCS: 36415; 71046; 80053; 83690; 84484; 85025; 85380; 85610; 85730; 87637; 93005; 99284; A9270

== ENCOUNTER 2024-05-28 07:54 | Emergency (ER) | payer OTHER, SELFPAY ==
[2024-05-28 07:57] VITALS: BP 148/84; PULSE 108; RESP 18; TEMP 36.6; O2SAT 100
--- OUTSIDE RECORDS SUMMARY | 2024-05-28 07:58 | XMS_ITS | Patient Health Summary ---
Author Organization [facility] Address [address] [place] [address] Care Team Providers Care Research Investigator Name Role Phone Unavailable Primary Care Provider Unavailabl e Note from [facility],non-owned Affiliates and Associated Physician Practices is amultiple site organization consisting of ambulatory clinics and hospital sitesin [place], [place], [place] and [place]. This disclosure is being madepursuant to the Care Everywhere program and may not contain all information available regarding this patient. Last updated 18.[facility] Allergies * Penicillins(Rash) -Medium Criticality * Penicillin G(Rash) -Medium Criticality,Inactive Medications * Be aware that medications may not be up to date on this document. Alwaysverify current medications with the patient. * albuterol HFA (VENTOLIN HFA) 108 (90 BASE) MCG/ACT inhaler Inhale 2 (two) puffs by mouth every 6 hours as needed for Shortness of Breath or Wheezing * montelukast (SINGULAIR) 10 MG tablet(Started 10/08/2020) Take 1 (one) tablet by mouth once daily * ADVAIR DISKUS 250-50 MCG/DOSE inhaler(Started 10/13/2020) Inhale 1 (one) puff by mouth 2 times daily * fluticasone propionate (FLONASE) 50 MCG/ACT nasal spray(Started 07/16/2020) Novi 1 spray into each nostril once daily * vitamin D, cholecalciferol, 50 MCG (2000 UT) tablet Take 2,000 Units by mouth once daily * B Complex Vitamins (VITAMIN-B COMPLEX PO) Take 1 tablet by mouth once daily * Magnesium Aspartate 65 MG Take 65 mg by mouth once daily * Melatonin 10 MG Take 10 mg by mouth nightly as needed * MAG64 64 MG tablet(Started 05/03/2021) Take 1 tablet by mouth at bedtime * FEROSUL 325 (65 Fe) MG tablet(Started 05/04/2021) Take 325 mg by mouth once daily * meloxicam (MOBIC) 7.5 MG tablet(Started 06/15/2021) Take 1 (one) tablet by mouth once daily 1 refill by 06/15/2022 Active Problems Problem Noted Date Diagnosed Date Melanocytic nevi of face 08/16/2022 Melanocytic nevi of trunk 08/16/2022 Asthma 06/02/2016 Hepatitis C antibody test positive 06/02/2016 Obesity with body mass index 30 or greater 06/02 Social History Tobacco Use Types Packs/Day Years Used Date Smoking Tobacco: Never Smokeless Tobacco: Never Sex and Gender Information Value Date Recorded Sex Assigned at Not on file Gender Identity Not on file Sexual Orientation Not on file Last Filed Vital Signs Vital Sign Reading Time Taken Comments Blood Pressure 134/75 05/25/2021 8:46 AM [employer] Pulse 90 05/25/2021 8:46 AM [employer] Temperature 36.6 ??C (97.9 ??F) 12/04/2020 9:58 AM CD T Respiratory Rate 16 05/25/2021 8:46 AM [employer] Oxygen Saturation 99% 05/25/2021 8:46 AM [employer] Inhaled Oxygen Concentration - - Weight 107.5 kg (237 lb) 05/25/2021 8:46 AM [employer] Height 170.2 cm (5' 7 ) 05/25/2021 8:46 AM [employer] Body Mass Index 37.12 05/25/2021 8:46 AM [employer] Procedures * XR HAND LEFT 3VW OR MORE(Performed 06/15/2021) Performed for Left hand pain * TX DRAIN/INJECT LARGE JOINT/BURSA(Performed 05/25/2021) Performed for Primary osteoarthritis of left knee, Primary osteoarthritis of right knee * TX DRAIN/INJECT LARGE JOINT/BURSA(Performed 05/25/2021) Performed for Primary osteoarthritis of left knee, Primary osteoarthritis of right knee * US JOINT INJECTION OR ASPIRATE(Performed 05/25/2021) Performed for Primary osteoarthritis of left knee * US JOINT INJECTION OR ASPIRATE(Performed 05/25/2021) Performed for Primary osteoarthritis of right knee * TX DRAIN/INJECT LARGE JOINT/BURSA(Performed 05/18/2021) Performed for Primary osteoarthritis of left knee, Primary osteoarthritis of right knee * TX DRAIN/INJECT LARGE JOINT/BURSA(Performed 05/18/2021) Performed for Primary osteoarthritis of left knee, Primary osteoarthritis of right knee * US JOINT INJECTION OR ASPIRATE(Performed 05/18/2021) Performed for Primary osteoarthritis of right knee * US JOINT INJECTION OR ASPIRATE(Performed 05/18/2021) Performed for Primary osteoarthritis of left knee * TX DRAIN/INJECT LARGE JOINT/BURSA(Performed 05/12/2021) Performed for Primary osteoarthritis of left knee * TX DRAIN/INJECT LARGE JOINT/BURSA(Performed 05/12/2021) Performed for Primary osteoarthritis of left knee * US JOINT INJECTION OR ASPIRATE(Performed 05/11/2021) Performed for Primary osteoarthritis of left knee * US JOINT INJECTION OR ASPIRATE(Performed 05/11/2021) Performed for Primary osteoarthritis of left knee * TX DRAIN/INJECT LARGE JOINT/BURSA(Performed 05/04/2021) Performed for Primary osteoarthritis of right knee, Primary osteoarthritis of left knee * TX DRAIN/INJECT LARGE JOINT/BURSA(Performed 05/04/2021) Performed for Primary osteoarthritis of right knee, Primary osteoarthritis of left knee * US JOINT INJECTION OR ASPIRATE(Performed 05/04/2021) Performed for Primary osteoarthritis of left knee * US JOINT INJECTION OR ASPIRATE(Performed 05/04/2021) Performed for Primary osteoarthritis of left knee * TX DRAIN/INJECT LARGE JOINT/BURSA(Performed 11/21/2020) Performed for Chronic pain of right knee * PATHOLOGY SMEAR BODY FLUID(Performed 11/20/2020) Performed for Chronic pain of right knee, Primary osteoarthritis of right knee, Effusion of right knee * CRYSTAL INDENTIFICATION SYNOVIAL FLUID(Performed 11/20/2020) Performed for Chronic pain of right knee, Primary osteoarthritis of right knee, Effusion of right knee * DIFFERENTIAL MANUAL FLUID(Performed 11/20/2020) Performed for Chronic pain of right knee, Primary osteoarthritis of right knee, Effusion of right knee * CELL COUNT W DIFF W CRYSTALS SYNOVIAL(Performed 11/20/2020) Performed for Chronic pain of right knee, Primary osteoarthritis of right knee, Effusion of right knee * CULTURE FLUID+GRAM STAIN(Performed 11/20/2020) Performed for Chronic pain of right knee, Primary osteoarthritis of right knee, Effusion of right knee * XR KNEE RIGHT 4VW OR MORE(Performed 11/20/2020) Performed for Right knee pain, unspecified chronicity * XR KNEE LEFT 4VW OR MORE(Performed 11/20/2020) Performed for Left knee pain, unspecified chronicity * STREP A SCREEN - POINT OF CARE (AMB) STL(Performed 05/27/2017) Performed for Strep pharyngitis Results * XR HAND LEFT 3VW OR MORE (06/15/2021 12:59 PM [employer]) Anatomical Region Laterality Modality Wrist / Hand Radiographic Rachel ging 06/15/2021 1:53 PM [employer] Narrative 06/15/2021 1:54 PM [employer] Left Hand 3 Views INDICATION: Pain Findings/impression: No fracture or malalignment is seen. The joint spaces are maintained. No soft tissue injuries or radiopaque foreign bodies are noted. *Reading Radiologist: Lambert Zapata on 06/15/2021 at 1:54 PM Procedure Note Lambert Zapata DO - 06/15/2021 Left Hand 3 Views INDICATION: Pain Findings/impression: No fracture or malalignment is seen. The joint spaces are maintained. No soft tissue injuries or radiopaque foreign bodies are noted. *Reading Radiologist: Lambert Zapata on 06/15/2021 at 1:54 PM [place] Jean Baptiste MD DIAGNOSTIC IMAGING O RDERABLES * TX DRAIN/INJECT LARGE JOINT/BURSA, TX DRAIN/INJECT LARGE JOINT/BURSA (05/25/2021 5:15 PM [employer]) Narrative Jacques Ward III, MD - 05/25/2021 5:15 PM [employer] Jacques Ward III, MD ? 05/25/2021 ??5:16 PM Consent Given by: ??patient Indications: pain Local Anesthesia Used?: Yes ?? Joint Location: ??Knee Knee Laterality & Site: ??L knee and R knee Prep: patient was prepped and draped in usual sterile fashion ?? Needle Size: ??22 G Medications ordered and administration documented through clinic-administered medications activity. Patient tolerance: ??Patient tolerated the procedure well with no immediate complications Jacques Ward III, MD PROCEDURE/MIN OR SURGICAL ORDERABLES * US JOINT INJECTION OR ASPIRATE (05/25/2021 8:46 AM [employer]) Only the most recent of8 resultswithin the time period is included. Narrative [facility] - 05/25/2021 8:46 AM [employer] This procedure was performed by an Orthopedic physician in a clinic setting. ??Please see the procedure note. Jacques Ward III, MD US ORDERABLES [facility] * TX DRAIN/INJECT LARGE JOINT/BURSA, TX DRAIN/INJECT LARGE JOINT/BURSA (05/18/2021 11:43 AM [employer]) Narrative Jacques Ward III, MD - 05/18/2021 11:43 AM [employer] Jacques Ward III, MD ? 05/18/2021 11:44 AM Consent Given by: ??patient Indications: pain Local Anesthesia Used?: Yes ?? Joint Location: ??Knee Knee Laterality & Site: ??R knee and L knee Prep: patient was prepped and draped in usual sterile fashion ?? Needle Size: ??22 G Medications ordered and administration documented through clinic-administered medications activity. Patient tolerance: ??Patient tolerated the procedure well with no immediate complications Jacques Ward III, MD PROCEDURE/MIN OR SURGICAL ORDERABLES * TX DRAIN/INJECT LARGE JOINT/BURSA, TX DRAIN/INJECT LARGE JOINT/BURSA (05/12/2021 11:54 AM [employer]) Narrative Jacques Ward III, MD - 05/12/2021 11:54 AM [employer] Jacques Ward III, MD ? 05/12/2021 11:54 AM Consent Given by: ??patient Indications: pain Local Anesthesia Used?: Yes ?? Joint Location: ??Knee Knee Laterality & Site: ??R knee and L knee Prep: patient was prepped and draped in usual sterile fashion ?? Needle Size: ??22 G Medications ordered and administration documented through clinic-administered medications activity. Patient tolerance: ??Patient tolerated the procedure well with no immediate complications Jacques Ward III, MD PROCEDURE/MIN OR SURGICAL ORDERABLES * TX DRAIN/INJECT LARGE JOINT/BURSA, TX DRAIN/INJECT LARGE JOINT/BURSA (05/04/2021 9:36 AM [employer]) Narrative Jacques Ward III, MD - 05/04/2021 9:36 AM [employer] Jacques Ward III, MD ? 05/04/2021 ??9:37 AM Consent Given by: ??patient Indications: pain Local Anesthesia Used?: Yes ?? Joint Location: ??Knee Knee Laterality & Site: ??R knee and L knee Prep: patient was prepped and draped in usual sterile fashion ?? Needle Size: ??22 G Medications ordered and administration documented through clinic-administered medications activity. Patient tolerance: ??Patient tolerated the procedure well with no immediate complications Jacques Ward III, MD PROCEDURE/MIN OR SURGICAL ORDERABLES * TX DRAIN/INJECT LARGE JOINT/BURSA (11/21/2020 3:10 PM CDT) Narrative Jacques Ward III, MD - 11/21/2020 3:10 PM CDT Jacques Ward III, MD ? 11/21/2020 ??3:14 PM Consent Given by: ??patient Indications: pain Local Anesthesia Used?: Yes ?? Joint Location: ??Knee Knee Laterality & Site: ??R knee Prep: patient was prepped and draped in usual sterile fashion ?? Needle Size: ??22 G Medications ordered and administration documented through clinic-administered medications activity. Aspirate amount (mL): ??6 Lab: fluid sent for laboratory analysis ?? Patient tolerance: ??Patient tolerated the procedure well with no immediate complications Jacques Ward III, MD PROCEDURE/MIN OR SURGICAL ORDERABLES * CRYSTAL INDENTIFICATION SYNOVIAL FLUID (11/20/2020 12:03 PM CDT) Crystal Exam Fluid No crystals seen. To be reviewed by pathologist. 11/20/2020 2:01 PM CDT [facility] Fluid SYNOVIAL FLUID / Unknown Collection / Unknown 11/20/2020 12:03 PM CDT 11/20/2020 12:03 PM CDT Jacques Ward III, MD LAB - BODY FL UID ORDERABLES Performing Organization Address City/[facility]/ZIP Co de Phone Number [address] [address], [place] [phone] * PATHOLOGY SMEAR BODY FLUID (11/20/2020 12:03 PM CDT) Pathology Diff Review DIFFERENTIAL REVIEW - CONFIRMED DIFFERENTIAL REVIEW - CONFIRMED 11/23/2020 11:45 AM CDT [facility] Comment: Final diagnosis: Synovial fluid, smear: - Chronic inflammation - ??No crystals identified Ita Pelayo MD [facility] Fluid SYNOVIAL FLUID / Unknown Collection / Unknown 11/20/2020 12:03 PM CDT 11/20/2020 12:03 PM CDT Jacques Ward III, MD LAB - PATHOLO GY/CYTOLOGY ORDERABLES Performing Organization Address City/[facility]/ZIP Co de Phone Number [address] [address], [place] [phone] * DIFFERENTIAL MANUAL FLUID (11/20/2020 12:03 PM CDT) Pathologist [facility] Segs % Fluid 2 % 11/20/2020 1:14 PM CDT [facility] Lymphocytes % Fluid 25 % 11/20/2020 1:14 PM CDT [facility] Monocytes % Fluid 23 % 11/20/2020 1:14 PM CDT [facility] Macrophages % Fluid 49 % 11/20/2020 1:14 PM CDT [facility] Synovial Lining Cells % 1 % 11/20/2020 1:14 PM CDT [facility] Fluid SYNOVIAL FLUID / Unknown Collection / Unknown 11/20/2020 12:03 PM CDT 11/20/2020 12:03 PM CDT Jacques Ward III, MD LAB - BODY FL UID ORDERABLES Performing Organization Address City/[facility]/ZIP Co de Phone Number [address] [address], [place] [phone] * CULTURE FLUID+GRAM STAIN (11/20/2020 12:03 PM CDT) Culture No growth YURIDIA 11/24/2020 12:43 AM CDT [facility] Gram Stain No polymorphonuclear cells 11/24/2020 12:43 AM CDT [facility] Gram Stain No organisms seen 021 12:43 AM CDT [facility] Fluid SYNOVIAL FLUID / Unknown Collection / Unknown 11/20/2020 12:03 PM CDT 11/20/2020 12:03 PM CDT Jacques Ward III, MD LAB - MICROBI OLOGY ORDERABLES [facility] [address] [place] [address], [facility] [phone] * (ABNORMAL) CELL COUNT W DIFF W CRYSTALS SYNOVIAL (11/20/2020 12:03 PM CDT) Color Fluid Yellow(A) Colorles s, Straw 11/20/2020 1:07 PM [facility] Clarity Fluid Slighty Cloudy(A) Clear 11/20/2020 1:07 PM T [facility] Volume Fluid 4.0 mL 11/20/2020 1:07 PM T [facility] Viscosity Normal 11/20/2020 1:07 PM [facility] Crystal Exam Fluid Crystal examination to follow. 11/20/2020 1:07 PM [facility] WBC Calculation Fluid 353(H) 0 - 200 /uL 11/20/2020 1:07 PM [facility] RBC Calculation 28 /uL 1:07 PM [facility] Differential Manual Differential to follow. 11/20/2020 1:07 PM T [facility] Fluid SYNOVIAL FLUID / Unknown Collection / Unknown 11/20/2020 12:03 PM CDT 11/20/2020 12:03 PM CDT Narrative [facility] - 11/20/2020 1:07 PM CDT No reference ranges established for body fluid cell counts. The reference ranges provided are derived from published literature. The test results must be integrated into the clinical context for interpretation. Jacques Ward III, MD LAB - BODY FL UID ORDERABLES [facility] [address] [place] [address], [facility] [phone] * XR KNEE RIGHT 4VW OR MORE (11/20/2020 10:46 AM CDT) Anatomical Region Laterality Modality Lower Extremity Radiographic Rachel ging 11/20/2020 10:5 5 AM CDT Impressions 11/20/2020 11:01 AM CDT IMPRESSION: No significant abnormality of the right knee. Left knee osteoarthritis, greatest in the medial compartment. Dictated by Niko Ramos MD (vice president payer). I, Dr. TEMO PARRA MD have personally reviewed and interpreted this examination/study. This report was electronically signed by TEMO PARRA MD ??on 11/20/2020 11:01 AM . Narrative 11/20/2020 11:01 AM CDT EXAMINATION: XR KNEE RIGHT 4VW , XR KNEE LEFT 4VW HISTORY: M25.561: Right knee pain, unspecified chronicity COMPARISON: No prior study is available for comparison. FINDINGS: Right knee: The osseous structures are intact and well aligned without acute fracture or dislocation. Very small osteophytes are noted. No joint effusion is seen. Left knee: The osseous structures are intact and well aligned without acute fracture or dislocation. There is moderate to severe medial compartment joint space narrowing. Tricompartmental osteophytes are visible. There is mild patellar spurring. No joint effusion is seen. Procedure Note Temo Parra MD - 11/20/2020 EXAMINATION: XR KNEE RIGHT 4VW , XR KNEE LEFT 4VW HISTORY: M25.561: Right knee pain, unspecified chronicity COMPARISON: No prior study is available for comparison. FINDINGS: Right knee: The osseous structures are intact and well aligned without acutefracture or dislocation. Very small osteophytes are noted. No joint effusion is seen. Left knee: The osseous structures are intact and well aligned without acutefracture or dislocation. There is moderate to severe medial compartment jointspace narrowing. Tricompartmental osteophytes are visible. There is mild patellar spurring. No joint effusion is seen. IMPRESSION: No significant abnormality of the right knee. Left knee osteoarthritis, greatest in the medial compartment. Dictated by Niko Ramos MD (vice president payer). Dr. TEMO Guardado MD have personally reviewed and interpreted this examination/study. This report was electronically signed by TEMO PARRA MD on11/20/2020 11:01 AM . Jacques Ward III, MD DIAGNOSTIC IM AGING ORDERABLES * XR KNEE LEFT 4VW OR MORE (11/20/2020 10:46 AM CDT) Anatomical Region Laterality Modality Lower Extremity Radiographic Rachel ging 11/20/2020 10:5 5 AM CDT Impressions 11/20/2020 11:01 AM CDT IMPRESSION: No significant abnormality of the right knee. Left knee osteoarthritis, greatest in the medial compartment. Dictated by Niko Ramos MD (vice president payer). Dr. TEMO Guardado MD have personally reviewed and interpreted this examination/study. This report was electronically signed by TEMO PARRA MD ??on 11/20/2020 11:01 AM . Narrative 11/20/2020 11:01 AM CDT EXAMINATION: XR KNEE RIGHT 4VW , XR KNEE LEFT 4VW HISTORY: M25.561: Right knee pain, unspecified chronicity COMPARISON: No prior study is available for comparison. FINDINGS: Right knee: The osseous structures are intact and well aligned without acute fracture or dislocation. Very small osteophytes are noted. No joint effusion is seen. Left knee: The osseous structures are intact and well aligned without acute fracture or dislocation. There is moderate to severe medial compartment joint space narrowing. Tricompartmental osteophytes are visible. There is mild patellar spurring. No joint effusion is seen. Procedure Note Temo Parra MD - 11/20/2020 EXAMINATION: XR KNEE RIGHT 4VW , XR KNEE LEFT 4VW HISTORY: M25.561: Right knee pain, unspecified chronicity COMPARISON: No prior study is available for comparison. FINDINGS: Right knee: The osseous structures are intact and well aligned without acutefracture or dislocation. Very small osteophytes are noted. No joint effusion is seen. Left knee: The osseous structures are intact and well aligned without acutefracture or dislocation. There is moderate to severe medial compartment jointspace narrowing. Tricompartmental osteophytes are visible. There is mild patellar spurring. No joint effusion is seen. IMPRESSION: No significant abnormality of the right knee. Left knee osteoarthritis, greatest in the medial compartment. Dictated by Niko Ramos MD (vice president payer). I, Dr. TEMO PARRA MD have personally reviewed and interpreted this examination/study. This report was electronically signed by TEMO PARRA MD on11/20/2020 11:01 AM . Jacques Ward III, MD DIAGNOSTIC IM AGING ORDERABLES * (ABNORMAL) STREP A SCREEN (05/27/2017) Strep A Rapid POCT Positive(A) Negative Strep A Internal Control Present Lot # [id number] Expiration Date [id number] Throat ENTIRE THROAT (SURFACE REGION OF NECK) / Unknown 05/27/2017 Terell Segovia RESOLUTION REP-EDITOR CONTINUITY AND SCRIPT LAB - POINT OF CARE ORDERABLES
--- OUTSIDE RECORDS SUMMARY | 2024-05-28 07:58 | XMS_ITS | Clinical Summary ---
Author Organization [facility] [address] Address [address] [place] [address] Phone Care Team Providers Care Dance Director Name Role Phone Aj John MD Primary Care Provider [phone] Allergies Active Allergy Reactions Criticality Noted Date Comments Penicillin Rash Medium Medications copper (PARAGARD T 380A) 380 square mm IUD as directed 0 Device 0 7 Active albuterol HFA (PROVENTIL HFA) 90 mcg/actuation inhaler inhale 2 puff by inhalation route twice daily 0 Inhaler 0 7 Active fluticasone-sa lmeterol (ADVAIR DISKUS) 100-50 mcg/dose diskus inhaler inhale 1 puff by inhalation route every day in the morning and evening approximately 12 hours apart 0 0 7 Active hydrocortisone 2.5 % cream Apply topically 2 (two) times a day 30 g 1 3 Active Additional Information Patient not taking.Reported on 02/20/2024 Active Problems Problem Noted Date Diagnosed Date Melanocytic nevi of face 08/16/2022 Melanocytic nevi of trunk 08/16/2022 Asthma 06/02/2016 Overview (07/28/2016): Asthma Obesity with body mass index 30 or greater 06/02 Overview (07/28/2016): BMI 30+ - obesity Hepatitis C antibody test positive 06/02/2016 Overview (07/28/2016): Hepatitis C antibody test positive Immunizations Name Administration Dates Next Due DTP 07/15/1982,08/30/1979,1978 ,1978,1978 MMR 12/09/1991,05/18/1979 OPV 07/15/1982,08/30/1979,1978 ,1978,1978 Td, adsorbed 10/14/2003,12/09/1991 Family History Medical History Relation Name Comments Asthma Father Asthma; Diabetes Father Diabetes mellit us; Breast cancer Maternal Grandmother Cancer , breast; Diabetes Mother Diabetes mellit us; Hypertension Other Family history of Hypertension; Relation Name Status Comments Father Maternal Grandmother Mother Other Social History Tobacco Use Types Packs/Day Years Used Date Smoking Tobacco: Never Smokeless Tobacco: Never Tobacco Cessation:Counseling Given: Not Answered Alcohol Use Standard Drinks/Week Comments Yes 0 (1 standard drink = 0.6 oz pur e alcohol) Personal Safety Answer Date Recorded Getting School Help Needed Not on file 06/18 Comments No Sex and Gender Information Value Date Recorded Sex Assigned at Not on file Legal Sex Female 7:22 PM CHEMISTRY ACCOUNT MANAGER Gender Identity Not on file Sexual Orientation Not on file 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19 02/20/2024 9:45 AM CDT Plan of Treatment Health Maintenance Due Date Last Done Comments Colon Cancer Screening-Colonoscopy 1978 Depression Screening 1978 Hepatitis C Screening 1978 Pneumococcal vaccine <65 (1 of 2 - PCV) 02/14/1984 Hepatitis B Screening 02/14/1996 DTaP/Tdap/Td Vaccine (6 - Tdap) 10/15/2003 10/14/2003, 12/09/1991, 07/15/1982, Additional history exists Cervical Cancer Screening 05/31/2020 05/31/2019 Influenza Vaccine (#1) 2023 Breast Cancer Screening-Mammogram 02/19/2025 02/20/2024, 01/17/2023, 07/20/2021, Additional history exists Regular Well Visit/Exam 18-64 02/19/2025 02/20/2024, 12/20/2022, 07/20/2021, Additional history exists HPV Vaccines Aged Out No longer eligi ble based on patient's age to complete this topic Procedures Procedure Name Priority Date/Time Associated Diagnosis Comments SCREENING MAMMOGRAM BILATERAL W BRANDON Schedule Routine, Read Routine (OP Routine) 02/20/2024 10:55 AM CDT Encounter for screening mammogram for malignant neoplasm of breast IMAGING PAP AND HPV MRNA E6/E7 Routine 05/31/2019 11:31 AM CHEMISTRY ACCOUNT MANAGER Cervical cancer screening from Last 3 Months or Most Recently Relevant to Health Maintenance Results * Screening Mammogram Bilateral W Brandon (02/20/2024 10:55 AM CDT) Anatomical Region Laterality Modality Breast Bilateral Mammography 02/21/2024 9:16 AM CDT Impressions 02/21/2024 9:16 AM CDT There is no mammographic evidence of malignancy. A 1 year screening mammogram is recommended. BI-RADS: 1 - Negative. The patient has been or will be contacted. The patient will be entered into a reminder system with a target due date of 1 year for her next mammogram. Electronically signed by: Antoinette Teran 02/21/2024 9:16 AM CDT EXAMINATION: SCREENING MAMMOGRAM BILATERAL W BRANDON ORDERING HEALTHCARE PROVIDER: SARAH EDMONDSON HISTORY: Routine screening mammography. COMPARISON: ??01/17/2023, 07/20/2021, 06/16/2020, 05/31/2019 TECHNIQUE: CC and MLO views of the bilateral breasts were obtained with digital technique using breast tomosynthesis with C view. Computer aided detection was utilized. FINDINGS: DENSITY: There are scattered areas of fibroglandular density. BREASTS: There are no suspicious masses, suspicious calcifications, or other suspicious findings in either breast. There has been no suspicious interval change. Sarah Huma Romina DO IMG MAMMO PROCEDURES Fi nal Result * Imaging Pap and HPV mRNA E6/E7 (05/31/2019 11:31 AM CHEMISTRY ACCOUNT MANAGER) CLINICAL INFORMATION: [facility] - Comment:Information not prov ided LMP 05/15/2019 [facility] - Previous Pap [facility] - Comment:INFORMATION NOT PROV IDED Prev. Bx [facility] - Comment:INFORMATION NOT PROV IDED SOURCE: [facility] - Comment:Cervix, Endocervix Pap, specimen adequacy [facility] - Comment: Satisfactory for evaluation. Endocervical/transformation zone component present. HPV interp [facility] - Comment:Negative for intraep ithelial lesion or malignancy. COMMENTS [facility] - Comment: This Pap test has been evaluated with computer assisted technology. Electronic Parts Salesperson [facility] - Comment: HERNANDEZ, CT(ASCP) CT Screening location: [facility] [address] [place] [address] Review tmd teacher [facility] - Comment: KMS, CT(ASCP) CT Screening location: [place] [address] [place] [address] Comment [facility] - Comment: EXPLANATORY NOTE: The Pap is a screening test for cervical cancer. It is not a diagnostic test and is subject to false negative and false positive results. It is most reliable when a satisfactory sample, regularly obtained, is submitted with relevant clinical findings and history, and when the Pap result is evaluated along with historic and current clinical information. Human papillomavirus RNA, High Risk E6/E7 Not Detected Not Detected [facility] - [place] Comment: This test was performed using the APTIMA HPV Assay ([employer] This assay detects E6/E7 viral messenger RNA (mRNA) from 14 high-risk HPV types (16,18,31,33,35,39,45,51,52,56,58,59,66,68). The analytical performance characteristics of this assay have been determined by [facility]. The modifications have not been cleared or approved by the FDA. This assay has been validated pursuant to the CLIA regulations and is used for clinical purposes. Cervical 05/31/2019 11:3 1 AM CHEMISTRY ACCOUNT MANAGER 06/03/2019 12:37 PM CHEMISTRY ACCOUNT MANAGER Narrative Resulting Agency Comment Performing Organization Information: ?Site ID: [place] ?Name: [facility] ?Address: [address] [place] [address] ?Director: Jacques Bull D.O., MPH ?Site ID: ?[facility] ?Address: [address] [place] [address] ?Director: Dennis Flores Stephanie Ward LENDING ACTIVITIES SUPERVISOR LAB PATHOLOGY ORDERABLES Final Result [facility] [place], [place] [facility] [place] Ring from Last 3 Months or Most Recently Relevant to Health Maintenance Insurance [facility] CHOICE PLUS Care Teams Dance Director Relationship Specialty Start Date End Date Aj John MD [address] [place] [id number] PCP - General 06/02/16
--- OUTSIDE RECORDS SUMMARY | 2024-05-28 07:58 | XMS_ITS | Clinical Summary ---
Author Organization [facility] Address [address] [place] [address]. [place], [place] [address] [place] [address] Care Team Providers Care Pet Trainer Name Role Phone Unavailable Primary Care Provider Unavailabl e Social History Tobacco Use Types Packs/Day Years Used Date Smoking Tobacco: Never Assessed Comments Unknown Sex and Gender Information Value Date Recorded Sex Assigned at Not on file Legal Sex Female 6:18 PM CDT Gender Identity Not on file Sexual Orientation Not on file Plan of Treatment Health Maintenance Due Date Last Done Comments Cervical Cancer Screening Pa p Smear (Age 30 to 64) Every 3 Years 1978 Colorectal Cancer Screening Colonoscopy (10 Years) 1978 Annual Physical 1981 Hepatitis C 02/14/1996 DTaP, Tdap and Td Vaccines ( 1 - Tdap) 1997 Hepatitis B Vaccines (1 of 3 - 19+ 3-dose series) 1997 Cervical Cancer Screening Pa p with HPV Testing (Age 30 to 64) Every 5 Years 02/14/2008 Cervical Cancer Screening with HPV 02/14/2008 Mammogram Screening 2018 COVID-19 Vaccine (2023-2 5 season) 2023 Influenza Adult (#1) 2024 HPV Vaccines Aged Out No longer eligi ble based on patient's age to complete this topic Meningococcal B Vaccine Aged Out No l onger eligible based on patient's age to complete this topic Meningococcal Vaccine Aged Out No margie laura eligible based on patient's age to complete this topic Pneumococcal Vaccine: Pediat rics (0 to 5 Years) and At-Risk Patients (6 to 64 Years) Aged Out No longer eligible b ased on patient's age to complete this topic RSV Immunizations Under 20 Months Aged Out No longer eligible based on patient's age to complete this topic
--- OUTSIDE RECORDS SUMMARY | 2024-05-28 07:58 | XMS_ITS | Clinical Summary ---
Author Organization [facility] Address [address] [facility] [place] [address] Care Team Providers Care Train Operations Manager Name Role Phone Unavailable Primary Care Provider Unavailabl e Source Comments [facility],non-owned Affiliates and Associated Physician Practices is amultiple site organization consisting of ambulatory clinics and hospital sitesin [place], [place], [place] and [place]. This disclosure is being madepursuant to the Care Everywhere program and may not contain all information available regarding this patient. Last updated 18.[facility] Allergies Active Allergy Reactions Criticality Noted Date Comments Penicillins Rash Medium 05/27/2017 Medications * Be aware that medications may not be up to date on this document. Alwaysverify current medications with the patient. Medication Sig Dispensed Refills Start Date End Date Status albuterol HFA (VENTOLIN HFA) 108 (90 BASE) MCG/ACT inhaler Inhale 2 (two) puffs by mouth every 6 hours as needed for Shortness of Breath or Wheezing Active montelukast (SINGULAIR) 10 MG tablet Take 1 (one) tablet by mouth once daily 10/08/2020 Active ADVAIR DISKUS 250-50 MCG/DOSE inhaler Inhale 1 (one) puff by mouth 2 times daily 10/13/2020 Active fluticasone propionate (FLONASE) 50 MCG/ACT nasal spray [place] 1 spray into each nostril once daily 07/16/2020 Active vitamin D, cholecalciferol, 50 MCG (2000 UT) tablet Take 2,000 Units by mouth once daily Active B Complex Vitamins (VITAMIN-B COMPLEX PO) Take 1 tablet by mouth once daily Active Magnesium Aspartate 65 MG Take 65 mg by mouth once daily Active Melatonin 10 MG Take 10 mg by mouth nightly as needed Active MAG64 64 MG tablet Take 1 tablet by mouth at bedtime 05/03/2021 Active FEROSUL 325 (65 Fe) MG tablet Take 325 mg by mouth once daily 05/04/2021 Active meloxicam (MOBIC) 7.5 MG tabletIndications:Malena arjun osteoarthritis of left knee,Primary osteoarthritis of right knee Take 1 (one) tablet by mouth once daily 60 tablet 1 06/15/2021 Active Additional Information Patient not taking.Reported on 08/16/2022 Active Problems Problem Noted Date Diagnosed Date Melanocytic nevi of face 08/16/2022 Melanocytic nevi of trunk 08/16/2022 Asthma 06/02/2016 Overview (11/20/2020): Asthma Hepatitis C antibody test positive 06/02/2016 Overview (11/20/2020): Hepatitis C antibody test positive Obesity with body mass index 30 or greater 06/02 Overview (11/20/2020): BMI 30+ - obesity Social History Tobacco Use Types Packs/Day Years Used Date Smoking Tobacco: Never Smokeless Tobacco: Never Sex and Gender Information Value Date Recorded Sex Assigned at Not on file Gender Identity Not on file Sexual Orientation Not on file Last Filed Vital Signs Vital Sign Reading Time Taken Comments Blood Pressure 134/75 05/25/2021 8:46 AM DISK SHARPENER Pulse 90 05/25/2021 8:46 AM DISK SHARPENER Temperature 36.6 ??C (97.9 ??F) 12/04/2020 9:58 AM CD T Respiratory Rate 16 05/25/2021 8:46 AM DISK SHARPENER Oxygen Saturation 99% 05/25/2021 8:46 AM DISK SHARPENER Inhaled Oxygen Concentration - - Weight 107.5 kg (237 lb) 05/25/2021 8:46 AM DISK SHARPENER Height 170.2 cm (5' 7 ) 05/25/2021 8:46 AM DISK SHARPENER Body Mass Index 37.12 05/25/2021 8:46 AM DISK SHARPENER Plan of Treatment Health Maintenance Due Date Last Done Comments COLOGUARD (AGES 45-75) - COL ON CA SCREENING 1978 COLON MONITORING 1978 COLONOSCOPY - COLON CA SCREENING 1978 CT COLONOGRAPHY - COLON CA SCREENING 1978 Colorectal Cancer Screening 1978 FIT - COLON CA SCREENING 1978 FLEX SIG - COLON CA SCREENING 1978 LIPID TESTING 1978 MAMMOGRAM 1978 PAP SMEAR 1978 HIV SCREENING 1993 HEPATITIS C SCREENING 02/09/1996 DTAP/TDAP/TD VACCINES (1 - Tdap) 1997 HEPATITIS B VACCINE (1 of 3 - 19+ 3-dose series) 1997 PNEUMOCOCCAL VACCINE (1 of 2 - PCV) 1997 COVID-19 VACCINE (1 2023-2 5 season) 2023 INFLUENZA VACCINE (#1) 2023 DEPRESSION SCREENING 04/24/2024 ZOSTER VACCINE (1 of 2) 02/14/2028 HIB VACCINE Aged Out No longer eligi ble based on patient's age to complete this topic HPV VACCINE Aged Out No longer eligi ble based on patient's age to complete this topic MENINGOCOCCAL (Group B) VACCINE Aged Out No longer eligible based on patient's age to complete this topic MENINGOCOCCAL VACCINE Aged Out No margie laura eligible based on patient's age to complete this topic OSIRIS MESSER Personal/Family [address] [place] [address] OSIRIS MESSER Personal/Family [address] [place] [address] OSIRIS MESSER Personal/Family [address] [place] [address]
--- OUTSIDE RECORDS SUMMARY | 2024-05-28 07:58 | XMS_ITS | Referral Summary ---
Author Organization [facility] Address [address] [facility] [place] [address] Care Team Providers Care Event Marketing Specialist Name Role Phone Unavailable Primary Care Provider Unavailabl e Source Comments [facility],non-owned Affiliates and Associated Physician Practices is amultiple site organization consisting of ambulatory clinics and hospital sitesin [place], [place], [place] and [place]. This disclosure is being madepursuant to the Care Everywhere program and may not contain all information available regarding this patient. Last updated 18.[facility] Allergies Active Allergy Reactions Criticality Noted Date [...] fluticasone propionate (FLONASE) 50 MCG/ACT nasal spray [place] 1 spray into each nostril once daily [...] Comments Blood Pressure 134/75 05/25/2021 8:46 AM KNOCKER OUT Pulse 90 05/25/2021 8:46 AM KNOCKER OUT Temperature 36.6 ??C (97.9 ??F) 12/04/2020 9:58 AM CD T Respiratory Rate 16 05/25/2021 8:46 AM KNOCKER OUT Oxygen Saturation 99% 05/25/2021 8:46 AM KNOCKER OUT Inhaled Oxygen Concentration - - Weight 107.5 kg (237 lb) 05/25/2021 8:46 AM KNOCKER OUT Height 170.2 cm (5' 7 ) 05/25/2021 8:46 AM KNOCKER OUT Body Mass Index 37.12 05/25/2021 8:46 AM KNOCKER OUT Plan of Treatment Not on file OSIRIS MESSER Personal/Family [address] [place] [address] OSIRIS MESSER Personal/Family [address] [place] [address] OSIRIS MESSER Personal/Family [address] [place] [address]
--- OUTSIDE RECORDS SUMMARY | 2024-05-28 07:58 | XMS_ITS | Referral Summary ---
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 Electronically signed by: Nathalia Castano M.D. Narrative 02/21/2024 9:16 AM CDT EXAMINATION: SCREENING MAMMOGRAM BILATERAL W BRANDON ORDERING HEALTHCARE PROVIDER: KYLAH EDMONDSON HISTORY: Routine screening mammography. COMPARISON: ??01/17/2023, [...] There has been no suspicious interval change. Kylah Edmondson DO IMG MAMMO PROCEDURES Fi nal Result * Imaging Pap and HPV mRNA E6/E7 (05/31/2019 11:31 AM LINOLEUM LAYER APPRENTICE) CLINICAL INFORMATION: [facility] [place] Comment:Information not prov ided LMP 05/15/2019 [facility] [place] Previous Pap [facility] [place] Comment:INFORMATION NOT PROV IDED Prev. Bx [facility] [place] Comment:INFORMATION NOT PROV IDED SOURCE: [facility] [place] Comment:Cervix, Endocervix Pap, specimen adequacy [facility] [place] Comment: Satisfactory for evaluation. Endocervical/transformation zone component present. HPV interp [facility] [place] Comment:Negative for intraep ithelial lesion or malignancy. COMMENTS [facility] [place] Comment: This Pap test has been evaluated with computer assisted technology. Cleat Blanker [facility] [place] Comment: HERNANDEZ, CT(ASCP) CT Screening location: [facility] [address] [place] [address] Review fruit grader operator [facility] [place] Comment: KMS, CT(ASCP) CT Screening location: [place] [address] [place] [address] Comment [facility] [place] Comment: EXPLANATORY NOTE: The Pap is a [...] High Risk E6/E7 Not Detected Not Detected [facility] [place] Comment: This test was performed using the APTIMA HPV Assay ([employer] This assay detects E6/E7 viral messenger RNA (mRNA) from 14 high-risk HPV types (16,18,31,33,35,39,45,51,52,56,58,59,66,68). The analytical performance characteristics of this assay have been determined by [employer] [facility]. The modifications have not been cleared or approved by the FDA. This assay has been validated pursuant to the CLIA regulations and is used for clinical purposes. Cervical 05/31/2019 11:3 1 AM LINOLEUM LAYER APPRENTICE 06/03/2019 12:37 PM LINOLEUM LAYER APPRENTICE Narrative Resulting Agency Comment Performing Organization Information: ?Site ID: [place] ?Name: [facility] ?Address: [address] [place] [address] ?Director: Jacques Bull D.O., ERIC ?Site ID: ?[facility] ?Address: [facility] [address] [place] [address] ?Director: Dennis Flores us Stephanie Ward NP LAB PATHOLOGY ORDERABLES Final Result [facility] [place] Ring from Last 3 Months or Most Recently Relevant to Health Maintenance Insurance [facility] H[facility]/PPO Address: [address] [address] [place] [address] [facility] CHOICE PLUS [facility] H[facility]/PPO Address: [facility] [address] [place] [address] Care Teams Returner Relationship Specialty Start Date End Date Aj John MD [address] [place] [address] PCP - General 06/02/16
--- OUTSIDE RECORDS SUMMARY | 2024-05-28 11:41 | XMS_ITS | Clinical Summary ---
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 Bx [facility] - Comment:INFORMATION NOT PROV IDED SOURCE: [facility] - Comment:Cervix, Endocervix Pap, specimen adequacy [facility] - Comment: Satisfactory for evaluation. Endocervical/transformation zone component present. HPV interp [facility] - Comment:Negative for intraep ithelial lesion or malignancy. COMMENTS [facility] - Comment: This Pap test has been evaluated with computer assisted technology. Pulmonary Disease Specialist [facility] - Comment: HERNANDEZ, CT(ASCP) CT Screening location: [facility] [address] [place] [address] Review prism measurer [facility] - Comment: KMS, CT(ASCP) CT Screening location: [place] [address] [place] [address] Comment [facility] - Comment: EXPLANATORY NOTE: [...] High Risk E6/E7 Not Detected Not Detected [facility] - [place] Comment: This test was performed using the APTIMA HPV Assay ([employer] This assay detects E6/E7 viral messenger RNA (mRNA) from 14 high-risk HPV types (16,18,31,33,35,39,45,51,52,56,58,59,66,68). The analytical performance characteristics of this assay have been determined by [facility]. The modifications have not been cleared or approved by the FDA. This assay has been validated pursuant to the CLIA regulations and is used for clinical purposes. Cervical 05/31/2019 11:3 1 AM PROC TECH 06/03/2019 12:37 PM PROC TECH Narrative Resulting Agency Comment Performing Organization Information: ?Site ID: [place] ?Name: [facility] ?Address: [address] [place] [address] ?Director: Jacques Bull D.O., MPH ?Site ID: ?Name: [facility] ?Address: [address] [place] [address] ?Director: Dennis Flores Stephanie Ward HONING MACHINE OPERATOR LAB PATHOLOGY ORDERABLES Final Result [facility] [place], [place] [facility] [place] Ring from Last 3 Months or Most Recently Relevant to Health Maintenance Insurance [facility] Care Teams Program Director/Music Director Relationship Specialty Start Date End Date Aj John MD [address] [place] [address] PCP - General 06/02/16
--- OUTSIDE RECORDS SUMMARY | 2024-05-28 11:41 | XMS_ITS | Patient Health Summary ---
Author Organization [facility] Address [address] [facility] [place] [address] Care Team Providers Care Chemistry Associate Name Role Phone Unavailable Primary Care Provider Unavailabl e Note from [facility],non-owned Affiliates and Associated Physician Practices is amultiple site organization consisting of ambulatory clinics and hospital sitesin [place] and [place]. This disclosure is being madepursuant to the Care Everywhere program and may not contain all information available regarding this patient. Last updated 18.[facility] Allergies * Penicillins(Rash) -Medium Criticality * Penicillin [...] propionate (FLONASE) 50 MCG/ACT nasal spray(Started 07/16/2020) [place] 1 spray into each nostril once daily [...] Comments Blood Pressure 134/75 05/25/2021 8:46 AM NAVY AIRSPACE OFFICER Pulse 90 05/25/2021 8:46 AM NAVY AIRSPACE OFFICER Temperature 36.6 ??C (97.9 ??F) 12/04/2020 9:58 AM CD T Respiratory Rate 16 05/25/2021 8:46 AM NAVY AIRSPACE OFFICER Oxygen Saturation 99% 05/25/2021 8:46 AM NAVY AIRSPACE OFFICER Inhaled Oxygen Concentration - - Weight 107.5 kg (237 lb) 05/25/2021 8:46 AM NAVY AIRSPACE OFFICER Height 170.2 cm (5' 7 ) 05/25/2021 8:46 AM NAVY AIRSPACE OFFICER Body Mass Index 37.12 05/25/2021 8:46 AM NAVY AIRSPACE OFFICER Procedures * XR HAND LEFT 3VW OR MORE(Performed 06/15/2021) Performed for Left hand pain * MS DRAIN/INJECT LARGE JOINT/BURSA(Performed 05/25/2021) Performed for Primary osteoarthritis of left knee, Primary osteoarthritis of right knee * MS DRAIN/INJECT LARGE JOINT/BURSA(Performed 05/25/2021) Performed for Primary osteoarthritis of left knee, Primary osteoarthritis of right knee * US JOINT INJECTION OR ASPIRATE(Performed 05/25/2021) Performed for Primary osteoarthritis of left knee * US JOINT INJECTION OR ASPIRATE(Performed 05/25/2021) Performed for Primary osteoarthritis of right knee * MS DRAIN/INJECT LARGE JOINT/BURSA(Performed 05/18/2021) Performed for Primary osteoarthritis of left knee, Primary osteoarthritis of right knee * MS DRAIN/INJECT LARGE JOINT/BURSA(Performed 05/18/2021) Performed for Primary osteoarthritis of left knee, Primary osteoarthritis of right knee * US JOINT INJECTION OR ASPIRATE(Performed 05/18/2021) Performed for Primary osteoarthritis of right knee * US JOINT INJECTION OR ASPIRATE(Performed 05/18/2021) Performed for Primary osteoarthritis of left knee * MS DRAIN/INJECT LARGE JOINT/BURSA(Performed 05/12/2021) Performed for Primary osteoarthritis of left knee * MS DRAIN/INJECT LARGE JOINT/BURSA(Performed 05/12/2021) Performed for Primary osteoarthritis of left knee * US JOINT INJECTION OR ASPIRATE(Performed 05/11/2021) Performed for Primary osteoarthritis of left knee * US JOINT INJECTION OR ASPIRATE(Performed 05/11/2021) Performed for Primary osteoarthritis of left knee * MS DRAIN/INJECT LARGE JOINT/BURSA(Performed 05/04/2021) Performed for Primary osteoarthritis of right knee, Primary osteoarthritis of left knee * MS DRAIN/INJECT LARGE JOINT/BURSA(Performed 05/04/2021) Performed for Primary osteoarthritis of right knee, Primary osteoarthritis of left knee * US JOINT INJECTION OR ASPIRATE(Performed 05/04/2021) Performed for Primary osteoarthritis of left knee * US JOINT INJECTION OR ASPIRATE(Performed 05/04/2021) Performed for Primary osteoarthritis of left knee * MS DRAIN/INJECT LARGE JOINT/BURSA(Performed 11/21/2020) Performed for Chronic [...] LEFT 3VW OR MORE (06/15/2021 12:59 PM NAVY AIRSPACE OFFICER) Anatomical Region Laterality Modality Wrist / Hand Radiographic Rachel ging 06/15/2021 1:53 PM NAVY AIRSPACE OFFICER Narrative 06/15/2021 1:54 PM NAVY [employer]SP[employer] OFFICER Left Hand 3 Views INDICATION: Pain Findings/impression: [...] Baptiste MD DIAGNOSTIC IMAGING O RDERABLES * MS DRAIN/INJECT LARGE JOINT/BURSA, MS DRAIN/INJECT LARGE JOINT/BURSA (05/25/2021 5:15 PM NAVY AIRSP[employer] OFFICER) Narrative Jacques Ward III, MD - 05/25/2021 5:15 PM NAVY AIRSPACE OFFICER Jacques Ward III, MD ? 05/25/2021 ??5:16 [...] JOINT INJECTION OR ASPIRATE (05/25/2021 8:46 AM NAVY AIRSPACE OFFICER) Only the most recent of8 resultswithin the time period is included. Narrative [facility] - 05/25/2021 8:46 AM NAVY AIRSPACE OFFICER This procedure was performed by an Orthopedic physician in a clinic setting. ??Please see the procedure note. Jacques Ward III, MD US ORDERABLES [facility] * MS DRAIN/INJECT LARGE JOINT/BURSA, MS DRAIN/INJECT LARGE JOINT/BURSA (05/18/2021 11:43 AM NAVY AIRSPACE OFFICER) Narrative Jacques Ward III, MD - 05/18/2021 11:43 AM NAVY AIRSPACE OFFICER Jacques Ward III, MD ? 05/18/2021 11:44 [...] III, MD PROCEDURE/MIN OR SURGICAL ORDERABLES * MS DRAIN/INJECT LARGE JOINT/BURSA, MS DRAIN/INJECT LARGE JOINT/BURSA (05/12/2021 11:54 AM NAVY AIRSP[employer] OFFICER) Narrative Jacques Ward III, MD - 05/12/2021 11:54 AM NAVY AIRSPACE OFFICER Jacques Ward III, MD ? 05/12/2021 11:54 [...] III, MD PROCEDURE/MIN OR SURGICAL ORDERABLES * MS DRAIN/INJECT LARGE JOINT/BURSA, MS DRAIN/INJECT LARGE JOINT/BURSA (05/04/2021 9:36 AM NAVY AIRSPACE OFFICER) Narrative Jacques Ward III, MD - 05/04/2021 9:36 AM NAVY AIRSPACE OFFICER Jacques Ward III, MD ? 05/04/2021 ??9:37 [...] III, MD PROCEDURE/MIN OR SURGICAL ORDERABLES * MS DRAIN/INJECT LARGE JOINT/BURSA (11/21/2020 3:10 PM CDT) [...] reviewed by pathologist. 11/20/2020 2:01 PM CDT [facility] Fluid SYNOVIAL FLUID / Unknown Collection / Unknown 11/20/2020 12:03 PM CDT 11/20/2020 12:03 PM CDT Jacques Ward III, MD LAB - BODY FL UID ORDERABLES Performing Organization Address City/[facility]/ZIP Co de Phone Number [address] [address], [place] [phone] * PATHOLOGY SMEAR BODY FLUID (11/20/2020 12:03 PM CDT) Pathology Diff Review DIFFERENTIAL REVIEW - CONFIRMED DIFFERENTIAL REVIEW - CONFIRMED 11/23/2020 11:45 AM CDT [facility] Comment: Final diagnosis: Synovial fluid, smear: - Chronic inflammation - ??No crystals identified Ita Pelayo MD Applications Processor Clinical Core Laboratory [facility] Fluid SYNOVIAL FLUID / Unknown Collection / Unknown 11/20/2020 12:03 PM CDT 11/20/2020 12:03 PM CDT Jacques Ward III, MD LAB - PATHOLO GY/CYTOLOGY ORDERABLES Performing Organization Address City/[facility]/ZIP Co de Phone Number [address] [address], [place] [phone] * DIFFERENTIAL MANUAL FLUID (11/20/2020 12:03 PM CDT) Pathologist [facility] Segs % Fluid 2 % 11/20/2020 1:14 PM CDT [facility] Lymphocytes % Fluid 25 % 11/20/2020 1:14 PM CDT [facility] Monocytes % Fluid 23 % 11/20/2020 1:14 PM CDT [facility] Macrophages % Fluid 49 % 11/20/2020 1:14 PM CDT [facility] Synovial Lining Cells % 1 % 11/20/2020 1:14 PM CDT [facility] Fluid SYNOVIAL FLUID / Unknown Collection / Unknown 11/20/2020 12:03 PM CDT 11/20/2020 12:03 PM CDT Jacques Ward III, MD LAB - BODY FL UID ORDERABLES Performing Organization Address City/[facility]/ZIP Co de Phone Number [address] [address], [place] [phone] * CULTURE FLUID+GRAM STAIN (11/20/2020 12:03 PM CDT) Culture No growth YURIDIA 11/24/2020 12:43 AM CDT [facility] Gram Stain No polymorphonuclear cells 11/24/2020 12:43 AM CDT [facility] Gram Stain No organisms seen 021 12:43 AM CDT [facility] Fluid SYNOVIAL FLUID / Unknown Collection / Unknown 11/20/2020 12:03 PM CDT 11/20/2020 12:03 PM CDT Jacques Ward III, MD LAB - MICROBI OLOGY ORDERABLES [facility] [address] [place] [address], [facility] [phone] * (ABNORMAL) CELL COUNT W DIFF W CRYSTALS SYNOVIAL (11/20/2020 12:03 PM CDT) Color Fluid Yellow(A) Colorles s, Straw 11/20/2020 1:07 PM [facility] Clarity Fluid Slighty Cloudy(A) Clear 11/20/2020 1:07 PM T [facility] Volume Fluid 4.0 mL 11/20/2020 1:07 PM T [facility] Viscosity Normal 11/20/2020 1:07 PM [facility] Crystal Exam Fluid Crystal examination to follow. 11/20/2020 1:07 PM [facility] WBC Calculation Fluid 353(H) 0 - 200 /uL 11/20/2020 1:07 PM [facility] RBC Calculation 28 /uL 1:07 PM [facility] Differential Manual Differential to follow. 11/20/2020 1:07 PM T [facility] Fluid SYNOVIAL FLUID / Unknown Collection / Unknown 11/20/2020 12:03 PM CDT 11/20/2020 12:03 PM CDT Narrative [facility] - 11/20/2020 1:07 PM CDT No reference ranges established for body fluid cell counts. The reference ranges provided are derived from published literature. The test results must be integrated into the clinical context for interpretation. Jacques Ward III, MD LAB - BODY FL UID ORDERABLES [facility] [address] [place] [address], [facility] [phone] * XR KNEE RIGHT 4VW OR MORE (11/20/2020 10:46 AM CDT) Anatomical Region Laterality Modality Lower Extremity Radiographic Rachel ging 11/20/2020 10:5 5 AM CDT Impressions 11/20/2020 11:01 AM CDT IMPRESSION: No significant abnormality of the right knee. Left knee osteoarthritis, greatest in the medial compartment. Dictated by Niko Ramos MD (residential sales representative). I, Dr. TEMO PARRA MD have personally [...] medial compartment. Dictated by Niko Ramos MD (residential sales representative). Dr. TEMO Guardado MD have personally reviewed [...] medial compartment. Dictated by Niko Ramos MD (residential sales representative). Dr. TEMO Guardado MD have personally reviewed [...] medial compartment. Dictated by Niko Ramos MD (residential sales representative). I, Dr. TEMO PARRA MD have personally reviewed and interpreted this examination/study. This report was electronically signed by TEMO PARRA MD on11/20/2020 11:01 AM . Jacques Ward III, MD DIAGNOSTIC IM AGING ORDERABLES * (ABNORMAL) STREP A SCREEN (05/27/2017) Strep A Rapid POCT Positive(A) Negative Strep A Internal Control Present Lot # [id number] Expiration Date [id number] Throat ENTIRE THROAT (SURFACE REGION OF NECK) / Unknown 05/27/2017 Terell Segovia MANAGER OF COMPLIANCE-[facility] - POINT OF CARE ORDERABLES
--- OUTSIDE RECORDS SUMMARY | 2024-05-28 11:41 | XMS_ITS | Referral Summary ---
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 Bx [facility] [place] Comment:INFORMATION NOT PROV IDED SOURCE: [facility] [place] Comment:Cervix, Endocervix Pap, specimen adequacy [facility] [place] Comment: Satisfactory for evaluation. Endocervical/transformation zone component present. HPV interp [facility] [place] Comment:Negative for intraep ithelial lesion or malignancy. COMMENTS [facility] [place] Comment: This Pap test has been evaluated with computer assisted technology. [facility] [place] Comment: HERNANDEZ, CT(ASCP) CT Screening location: [facility] [address] [place] [address] Review air director [facility] - [place] Comment: KMS, CT(ASCP) CT Screening location: [place] [address] [place] [address] Comment [facility] [place] Comment: EXPLANATORY NOTE: The Pap [...] was performed using the APTIMA HPV Assay ([employer] This assay detects E6/E7 viral messenger RNA (mRNA) from 14 high-risk HPV types (16,18,31,33,35,39,45,51,52,56,58,59,66,68). The analytical performance characteristics of this assay have been determined by [facility]. The modifications have not been cleared or approved by the FDA. This assay has been validated pursuant to the CLIA regulations and is used for clinical purposes. Cervical 05/31/2019 11:3 1 AM VOLUNTEER SERVICES DIRECTOR 06/03/2019 12:37 PM VOLUNTEER SERVICES DIRECTOR Narrative Resulting Agency Comment Performing Organization Information: ?Site ID: [place] ?Name: [facility] ?Address: [address] [place] [address] ?Director: Jacques Bull D.O., ERIC ?Site ID: ?[facility] ?Address: [facility] [address] [place] [address] ?Director: Dennis Flores us Stephanie Ward NP LAB PATHOLOGY ORDERABLES Final Result [facility] [place] [facility] - [place] Ring from Last 3 Months or Most Recently Relevant to Health Maintenance Insurance [facility] H[facility]/PPO Address: [address] [address] [place] [address] [facility] CHOICE PLUS [facility] HMO/PPO Address: [facility] [address] [place] [address] Care Teams Intake Clerk Relationship Specialty Start Date End Date Aj John MD [address] [place] [address] PCP - General 06/02/16
--- OUTSIDE RECORDS SUMMARY | 2024-05-28 11:41 | XMS_ITS | Clinical Summary ---
Author Organization [facility] Address [address] [facility] [place] [address] Care Team Providers Care Technical Solutions Engineer Name Role Phone Unavailable Primary Care Provider Unavailabl e Source Comments [facility],non-owned Affiliates and Associated Physician Practices is amultiple site organization consisting of ambulatory clinics and hospital sitesin [place], [place], [place] and [place]. This disclosure is being madepursuant to the Care Everywhere program and may not contain all information available regarding this patient. Last updated 18.[facility] Allergies Active Allergy Reactions Criticality Noted Date [...] fluticasone propionate (FLONASE) 50 MCG/ACT nasal spray [place] 1 spray into each nostril once daily [...] Comments Blood Pressure 134/75 05/25/2021 8:46 AM PATIENT OMBUDSPERSON Pulse 90 05/25/2021 8:46 AM PATIENT OMBUDSPERSON Temperature 36.6 ??C (97.9 ??F) 12/04/2020 9:58 AM CD T Respiratory Rate 16 05/25/2021 8:46 AM PATIENT OMBUDSPERSON Oxygen Saturation 99% 05/25/2021 8:46 AM PATIENT OMBUDSPERSON Inhaled Oxygen Concentration - - Weight 107.5 kg (237 lb) 05/25/2021 8:46 AM PATIENT OMBUDSPERSON Height 170.2 cm (5' 7 ) 05/25/2021 8:46 AM PATIENT OMBUDSPERSON Body Mass Index 37.12 05/25/2021 8:46 AM PATIENT OMBUDSPERSON Plan of Treatment Health Maintenance Due Date [...] topic OSIRIS MESSER Personal/Family [address] [place] [address] OSIRIS MESSER Personal/Family [address] [place] [address] OSIRIS MESSER Personal/Family [address] [place] [address]
--- OUTSIDE RECORDS SUMMARY | 2024-05-28 11:41 | XMS_ITS | Referral Summary ---
Author Organization [facility] Address [address] [place] [address] Care Team Providers Care Nuclear Physician Name Role Phone Unavailable Primary Care Provider Unavailabl e Source Comments [facility],non-owned Affiliates and Associated Physician Practices is amultiple site organization consisting of ambulatory clinics and hospital sitesin [place], [place], [place] and [place]. This disclosure is being madepursuant to the Care Everywhere program and may not contain all information available regarding this patient. Last updated 18.[facility] Allergies Active Allergy Reactions Criticality Noted Date [...] fluticasone propionate (FLONASE) 50 MCG/ACT nasal spray [place] 1 spray into each nostril once daily [...] Comments Blood Pressure 134/75 05/25/2021 8:46 AM CUSTOMER EXPERIENCE MANAGER Pulse 90 05/25/2021 8:46 AM CUSTOMER EXPERIENCE MANAGER Temperature 36.6 ??C (97.9 ??F) 12/04/2020 9:58 AM CD T Respiratory Rate 16 05/25/2021 8:46 AM CUSTOMER EXPERIENCE MANAGER Oxygen Saturation 99% 05/25/2021 8:46 AM CUSTOMER EXPERIENCE MANAGER Inhaled Oxygen Concentration - - Weight 107.5 kg (237 lb) 05/25/2021 8:46 AM CUSTOMER EXPERIENCE MANAGER Height 170.2 cm (5' 7 ) 05/25/2021 8:46 AM CUSTOMER EXPERIENCE MANAGER Body Mass Index 37.12 05/25/2021 8:46 AM CUSTOMER EXPERIENCE MANAGER Plan of Treatment Not on file OSIRIS MESSER Personal/Family [address] [place] [address] OSIRIS MESSER Personal/Family [address] [place] [address] OSIRIS MESSER Personal/Family [address] [place] [address]
--- OUTSIDE RECORDS SUMMARY | 2024-05-28 11:41 | XMS_ITS | Clinical Summary ---
Author Organization [facility] Address [address] [place] [address]. [place], [place] [id number] [place] [address] Care Team Providers Care Music Library Assistant Name Role Phone Unavailable Primary Care Provider [...]
== END 2024-05-28 11:05 | disposition left against medical advice (07) ==
PROVIDERS: PCP Nurse Practitioner Family
DX: R06.00 Dyspnea, unspecified (principal)
CPT/HCPCS: 99199

== ENCOUNTER 2024-07-11 16:44 | Outpatient (CLI) | payer OTHER, SELFPAY ==
--- OUTSIDE RECORDS SUMMARY | 2024-07-11 16:48 | XMS_ITS | Clinical Summary ---
Author Organization [facility] Address [address] [facility] [place] [address] Care Team Providers Care Engineer Steam Name Role Phone Unavailable Primary Care Provider Unavailabl e Source Comments [facility],non-owned Affiliates and Associated Physician Practices is amultiple site organization consisting of ambulatory clinics and hospital sitesin [place], [place], [place] and [place]. This disclosure is being madepursuant to the Care Everywhere program and may not contain all information available regarding this patient. Last updated 18.[facility] Allergies Active Allergy Reactions Criticality Noted Date [...] fluticasone propionate (FLONASE) 50 MCG/ACT nasal spray [place] 1 spray into each nostril once daily [...] Comments Blood Pressure 134/75 05/25/2021 8:46 AM HELP AID Pulse 90 05/25/2021 8:46 AM HELP AID Temperature 36.6 C (97.9 F) 12/04/2020 9:58 AM CDT Respiratory Rate 16 05/25/2021 8:46 AM HELP AID Oxygen Saturation 99% 05/25/2021 8:46 AM HELP AID Inhaled Oxygen Concentration - - Weight 107.5 kg (237 lb) 05/25/2021 8:46 AM HELP AID Height 170.2 cm (5' 7 ) 05/25/2021 8:46 AM HELP AID Body Mass Index 37.12 05/25/2021 8:46 AM HELP AID Plan of Treatment Health Maintenance Due Date [...] of 2 - PCV) 1997 COVID-19 VACCINE (2023-2 5 season) 2023 INFLUENZA VACCINE (#1) 2023 DEPRESSION SCREENING 04/24/2024 ZOSTER VACCINE (1 of 2) 02/14/2028 HIB VACCINE Aged Out No longer eligi ble based on patient's age to complete this topic HPV VACCINE Aged Out No longer eligi ble based on patient's age to complete this topic MENINGOCOCCAL (Group B) VACC INE SHARED DECISION-MAKING Aged Out No longer eligibl e based on patient's age to complete this topic MENINGOCOCCAL GROUPS A/C/Y/W VACCINE Aged Out No longer eligible b ased on patient's age to complete this topic OSIIRS MESSER Personal/Family [address] [place] [address] OSIRIS MESSER Personal/Family [address] [place] [address] SOIRIS MESSER Personal/Family [address] [place] [address]
--- OUTSIDE RECORDS SUMMARY | 2024-07-11 16:48 | XMS_ITS | Clinical Summary ---
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 Not on file Not [...] AM CDT Pulse - - Temperature 35.9 C (96.6 F) 05/19/2020 1:15 PM TEACHER RESOURCE Respiratory Rate - - Oxygen Saturation - - Inhaled Oxygen Concentration - - Weight 109.3 kg (241 lb) 02/20/2024 9:45 AM CDT Height 171.5 cm (5' 7.5 ) 02/20/2024 9:45 AM CDT Body Mass Index 37.19 02/20/2024 9:45 AM CDT Plan of Treatment Health Maintenance Due Date Last Done Comments Colon Cancer Screening-Colonoscopy 1978 Depression Screening 1978 Hepatitis C Screening 1978 Hepatitis B Screening 02/14/1996 Pneumococcal vaccine <65 (1 of 2 - PCV) 1997 DTaP/Tdap/Td Vaccine (6 - Tdap) 10/15/2003 10/14/2003, [...] HPV MRNA E6/E7 Routine 05/31/2019 11:31 AM TEACHER RESOURCE Cervical cancer screening from Last 3 Months [...] BILATERAL W BRANDON ORDERING HEALTHCARE PROVIDER: KYLAH VANEGAS HISTORY: Routine screening mammography. COMPARISON: 01/17/2023, 07/20/2021, 06/16/2020, 05/31/2019 TECHNIQUE: CC and MLO views of the bilateral breasts were obtained with digital technique using breast tomosynthesis with C view. Computer aided detection was utilized. FINDINGS: DENSITY: There are scattered areas of fibroglandular density. BREASTS: There are no suspicious masses, suspicious calcifications, or other suspicious findings in either breast. There has been no suspicious interval change. us Kylah Vanegas DO IMG MAMMO PROCEDURES Fi nal Result * Imaging Pap and HPV mRNA E6/E7 (05/31/2019 11:31 AM TEACHER RESOURCE) CLINICAL INFORMATION: [facility] [place] Comment:Information not prov ided LMP 05/15/2019 [facility] - Previous Pap [facility] - Comment:INFORMATION NOT PROV IDED Prev. Bx [facility] - Comment:INFORMATION NOT PROV IDED SOURCE: [facility] - Comment:Cervix, Endocervix Pap, specimen adequacy [facility] - Comment: Satisfactory for evaluation. Endocervical/transformation zone component present. HPV interp [facility] - Comment:Negative for intraep ithelial lesion or malignancy. COMMENTS [facility] - Comment: This Pap test has been evaluated with computer assisted technology. First Leveler [facility] - Comment: HERNANDEZ, CT(ASCP) CT Screening location: [facility] Administration ALEX Anguiano [facility] Review national sales executive [facility] - Comment: KMS, CT(ASCP) CT Screening location: [place] [address] Administration ALEX Anguiano [facility] Comment [facility] - Comment: EXPLANATORY NOTE: The [...] Risk E6/E7 Not Detected Not Detected [facility] - [place] Comment: This test was performed using the APTIMA HPV Assay ([employer] This assay detects E6/E7 viral messenger RNA (mRNA) from 14 high-risk HPV types (16,18,31,33,35,39,45,51,52,56,58,59,66,68). The analytical performance characteristics of this assay have been determined by [facility]. The modifications have not been cleared or approved by the FDA. This assay has been validated pursuant to the CLIA regulations and is used for clinical purposes. Cervical 05/31/2019 11:3 1 AM TEACHER RESOURCE 06/03/2019 12:37 PM TEACHER RESOURCE Narrative Resulting Agency Comment Performing Organization Information: Site ID: [id number] Name: [facility] Address: [address] [address] Director: Jacques Bull D.O., MPH Site ID: [place] [facility] Address: [address] [address] [address] Director: Dennis Flores Stephanie Ward NP LAB PATHOLOGY ORDERABLES Final Result [facility] - [place] [facility] - [place] from Last 3 Months or Most Recently Relevant to Health Maintenance Insurance [facility] [address] [facility] CHOICE PLUS Care Teams Care Attendant Relationship Specialty Start Date End Date Aj John MD [address] [place] [id number] PCP - General 06/02/16
--- OUTSIDE RECORDS SUMMARY | 2024-07-11 16:48 | XMS_ITS | Referral Summary ---
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 COMPARISON: 01/17/2023, 07/20/2021, [...] has been no suspicious interval change. us Sarah Edmondson DO IMG MAMMO PROCEDURES Fi nal Result * Imaging Pap and HPV mRNA E6/E7 (05/31/2019 11:31 AM DIRECTOR OF CREATIVE SERVICES) CLINICAL INFORMATION: [facility] [place] Comment:Information not prov ided LMP 05/15/2019 [facility] [place] Previous Pap [facility] [place] Comment:INFORMATION NOT PROV IDED Prev. Bx [facility] [place] Comment:INFORMATION NOT PROV IDED SOURCE: [facility] [place] Comment:Cervix, Endocervix Pap, specimen adequacy [facility] [place] Comment: Satisfactory for evaluation. Endocervical/transformation zone component present. HPV interp [facility] [place] Comment:Negative for intraep ithelial lesion or malignancy. COMMENTS [facility] [place] Comment: This Pap test has been evaluated with computer assisted technology. Pairer Inspector [facility] [place] Comment: HERNANDEZ, CT(ASCP) CT Scre[facility] Administration ALEX Anguiano [facility] Review document design specialist [facility] - [place] Comment: KMS, CT(ASCP) CT Screening location: [place] [address] [place] [address] Comment [facility] - Comment: EXPLANATORY NOTE: The Pap [...] High Risk E6/E7 Not Detected Not Detected [facility] - [place] Comment: This test was performed using the APTIMA HPV Assay ([employer] This assay detects E6/E7 viral messenger RNA (mRNA) from 14 high-risk HPV types (16,18,31,33,35,39,45,51,52,56,58,59,66,68). The analytical performance characteristics of this assay have been determined by [facility]. The modifications have not been cleared or approved by the FDA. This assay has been validated pursuant to the CLIA regulations and is used for clinical purposes. Cervical 05/31/2019 11:3 1 AM DIRECTOR OF CREATIVE SERVICES 06/03/2019 12:37 PM DIRECTOR OF CREATIVE SERVICES Narrative Resulting Agency Comment Performing Organization Information: Site ID: [id number] Name: [facility] Address: [address] [address] Director: Jacques Bull D.O., MPH Site ID: [place] Name: [facility] Address: [address] [place] [address] Director: Dennis Flores Stephanie Ward ELECTRICIAN SUBSTATION LAB PATHOLOGY ORDERABLES Final Result [facility] - [place], [place] [employer] [facility] [place] from Last 3 Months or Most Recently Relevant to Health Maintenance Insurance [facility] CHOICE PLUS Care Teams Timber Appraiser Relationship Specialty Start Date End Date Aj John MD [address] [place] [id number] PCP - General 06/02/16
--- OUTSIDE RECORDS SUMMARY | 2024-07-11 16:48 | XMS_ITS | Clinical Summary ---
Author Organization [facility] Address [facility] [place] [address] Care Team Providers Care Supervisor Speech Name Role Phone Unavailable Primary Care Provider [...]
[2024-07-11 17:18] LABS: Albumin Level 4.3 g/dL (3.5-5.1); Anion Gap 11 mmol/L (4-12); Blood Urea Nitrogen 13 mg/dL (7-17); Carbon Dioxide 24 mmol/L (22-30); Chloride 101 mmol/L (98-107); Estimated Glomerular Filt Rate 60; Glucose 119 mg/dL (65-110); Phosphorus 4.1 mg/dL (2.5-4.5); Potassium 3.9 mmol/L (3.4-5.0); Sodium 136 mmol/L (137-145)
[2024-07-11 19:02] LABS: Creatinine Urine 136.5 mg/dL
[2024-07-11 19:14] LABS: Total Protein Urine Random < 5 mg/dL; Ur Ttl Prot Creatinine Ratio < 0.04 mg/mg (0-0.20)
== END 2024-07-11 16:45 | disposition home or self-care (01) ==
LOC: ANHLAB 16:47
PROVIDERS: PCP Nurse Practitioner Family; Visit Provider Internal Medicine Nephrology
DX: R79.89 Other specified abnormal findings of blood chemistry (principal)
CPT/HCPCS: 36415; 80069; 82570; 84156

== ENCOUNTER 2024-11-14 17:14 | Emergency (ER) | payer OTHER, SELFPAY ==
--- NOTE | 2024-11-14 17:20 | ED_ITS ---
HPI - Skin/Abscess/Foreign Bdy General Chief complaint: Skin/Abscess/Foreign Body Stated complaint: Rash Time Seen by Provider: 11/14/24 17:25 Source: patient, RN notes reviewed and old records reviewed Mode of arrival: ambulatory Limitations: no limitations History of Present Illness HPI narrative: 44-year-old female presents to the [facility] with complaints of a rash for 3 weeks. Patient reports that she was clearing brush Patient reports that she has been using chigger cream, cortisone and using triamcinolone Reports it as being very itchy Scabbed over vesicles noted to the left arm, left leg. Patient reports itchiness to the back. Related Data Allergies Allergy/AdvReac Type Severity Reaction Status Date / Time Penicillins Allergy Intermediate unknown Verified 11/14/24 17:24 Review of Systems Review of Systems: All systems reviewed & are unremarkable except as noted in HPI and below Constitutional: Constitutional: Reports no additional constitutional complaints ENT: Reports system reviewed and no additional complaints, except as documented Cardiovascular: Cardiovascular: Reports no additional cardiovascular complai nts, Denies chest pain and Denies dyspnea Respiratory: Respiratory: Reports no additional respiratory complaints, Denies chest congestion, Denies cough and Denies dyspnea Musculoskeletal: Musculoskeletal: Reports no additional musculoskeletal complaints Integumentary/Breasts: Skin/Breast: Reports as per HPI [facility] Past Medical History Medical History Knee sprain Acute sinusitis Mild sleep apnea Asthma Surgical History Surgical History No significant past surgical history Social History Social History Smoking status: Never smoker Tobacco type: cigarettes Alcohol intake: current Substance use: never Substance use type: does not use Do You Feel Safe in your Home?: Yes Lack of Transportation: No Lack of Food: Never True Current Housing: I Have Housing Concerned About Future Housing: No Difficulty Paying Gas/Electric Bills: No Difficulty Paying for Meds: No Currently Unemployed: No Education: Trade/Vocational Certificate Difficulty w/ Childcare or Family Care: No Living arrangements: with family Gender identity (if verbalized by the patient): Female Sexual Orientation (if Verbalized by the Patient): Straight or Heterosexual Spiritual care concerns: No Comments At the time of my signature, I reviewed and agree with the nursing past medical, surgical, social, and family history. There is no relevant family history pertinent to the patient complaint. Exam Const: General: cooperative, healthy appearing, comfortable, no acute distress, well developed, alert and well nourished Nutritional Appearance: well nourished Orientation/consciousness: patient oriented x3 Limitations: no limitations HENMT: Head: normal to inspection Eyes: General: appearance normal, both eyes and all related structures Alignment and Position: alignment normal Neck: Neck: normal visual inspection, full ROM, no lymphadenopathy and no meningeal signs Chest: Chest palpation & inspection: normal inspection of the chest Resp: Effort & Inspection: normal respiratory effort and able to speak in complete sentences Auscultation: clear to auscultation bilaterally, no crackles, no rales, no rhonchi and no wheezes Cardio: Rate: regular rate Skin: General skin exam: normal color and no rashes or lesions noted Other: Multiple linear vesicular areas to the left arm, left leg. Red raised bumps to the posterior left leg. Neuro: General: patient oriented x3, gait normal, moves all extremities and no meningeal signs Cognition (Neuro): normal cognition Speech: normal speech Gait exam (Neuro): Normal gait present Extrem: General: normal to inspection, full ROM, capillary refill normal and normal gait Psych: Appearance: grossly normal and well kempt Mental Status: mental status grossly normal Speech and movement: Normal speech and movement present and Clear speech present Affect: normal affect Attitude: cooperative Course Course Level of Care: Express Care Visit Vital Signs Vital signs: Vital Signs Temperature 97.7 F 11/14/24 17:25 Pulse Rate 82 11/14/24 17:25 Respiratory Rate 16 11/14/24 17:25 Blood Pressure 132/83 11/14/24 17:25 Pulse Oximetry 100 11/14/24 17:25 Temperature 97.7 F 11/14/24 17:25 Pulse Rate 82 11/14/24 17:25 Respiratory Rate 16 11/14/24 17:25 Blood Pressure 132/83 11/14/24 17:25 Pulse Oximetry 100 11/14/24 17:25 Reviewed MDM - Skin/Abscess/Foreign Bdy MDM Narrative Medical decision making narrative: Patient presents with a 3 week history of a rash. Some rash appears to be a contact dermatitis others with possible insect bites. No cellulitic changes noted. Patient appropriate for outpatient treatment with close follow-up Discharge instructions reviewed with patient, as well as provided in writing per nursing staff. The instructions also include specific and strict return/GO TO THE ER as well as f/u information. All questions have been answered, and the patient deny any further questions with discharge and discharge plan. Some parts of this dictation were generated by voice recognition software and may contain typographical and/or grammatical inaccuracies. Differential Diagnosis Differential diagnosis: Likely abscess of skin or subcutaneous tissue, urticaria, cellulitis, eczema, insect bites and contact dermatitis Critical Care Time Critical Care Time Critical Care Time: No Discharge Plan Discharge Clinical Impression: Dermatitis Patient Disposition: Home Condition: Stable Instructions: Antibiotic Form, Dermatitis (ED) Additional Instructions: The most important part of your care is follow up with Primary care provider. Take Benadryl 25mg every 8 hours for itching Take Zyrtec 10mg every day Take the steroids starting tonight or you can wait till 1st thing in the morning so you do not suffer from insomnia Apply the triamcinolone to extremities. Do not use on your face Avoid hot showers, Take cool showers. Hot showers will make rashes worse Apply cool compresses every 2-3 hours for 15 minutes Go to the ER for new or worsening symptoms such as shortness of breath. Patient Language: Divehi Prescriptions: New prednisone 20 mg tablet See Rx Instructions .Route .COMPLEX Qty: 9 0RF Rx Instructions: Take 40 mg daily for 3 days, 20 mg daily for 3 days triamcinolone acetonide 0.1 % cream 1 applic topical TID Qty: 80 0RF No Action albuterol sulfate 90 mcg/actuation HFA aerosol inhaler See Rx Instructions .ROUTE .COMPLEX Qty: 9 1RF Dose Instruction: INHALE 1 PUFF BY MOUTH EVERY 4 HOURS NEEDED FOR SHORTNESS OF BREATH OR WHEEZING Rx Instructions: INHALE 1 PUFF BY MOUTH EVERY 4 HOURS NEEDED FOR SHORTNESS OF BREATH OR WHEEZING fluticasone propion-salmeterol [Advair HFA] 230-21 mcg/actuation HFA aerosol inhaler 2 puff inhalation BID Qty: 12 3RF Follow-up/Referrals: PHYSICIAN,REGISTERED SAFETY ENGINEER [Primary Care Provider] - Time of Disposition: 17:37
[2024-11-14 17:25] VITALS: BP 132/83; PULSE 82; RESP 16; TEMP 36.5; O2SAT 100
== END 2024-11-14 17:43 | disposition home or self-care (01) ==
PROVIDERS: Emergency Provider Nurse Practitioner
DX: L30.9 Dermatitis, unspecified (principal); J45.909 Unspecified asthma, uncomplicated
CPT/HCPCS: 99213; G0463

== ENCOUNTER 2024-12-17 09:57 | Outpatient (CLI) | payer OTHER, SELFPAY ==
--- NOTE | ~2024-12-17 | XR_ITS ---
XR heel LT min 2V, XR foot LT min 3V 12/17/2024 10:39 (accession [id number]), 12/17/2024 10:40 (accession [id number]) Indication: Left foot pain Procedure: 4 views left foot and 2 views left heel/os calcis Comparison: No prior studies for comparison. Findings: Prominent degenerative calcaneal enthesophyte at the plantar surface. There is anatomic alignment. No fracture or traumatic malalignment. Lisfranc joint intact. No focal soft tissue abnormality. No foreign bodies. Impression: 1: No significant bone or joint abnormality. Reviewed, dictated and finalized at location O. Impression: 1: No significant bone or joint abnormality. Impression: 1: No significant bone or joint abnormality.
--- OUTSIDE RECORDS SUMMARY | 2024-12-17 10:24 | XMS_ITS | Clinical Summary ---
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 Not on file [...] 35.9 C (96.6 F) 05/19/2020 1:15 PM PULLING UNIT FLOORHAND Respiratory Rate - - Oxygen Saturation - - Inhaled Oxygen Concentration - - Weight 109.3 kg (241 lb) 02/20/2024 9:45 AM CDT Height 171.5 cm (5' 7.5) 02/20/2024 9:45 AM CDT Body Mass Index [...] Cancer Screening 05/31/2020 05/31/2019 Influenza Vaccine (#1) 2024 Breast Cancer Screening-Mammogram 02/19/2025 02/20/2024, 01/17/2023, 07/20/2021, [...] HPV MRNA E6/E7 Routine 05/31/2019 11:31 AM PULLING UNIT FLOORHAND Cervical cancer screening from Last 3 Months [...] and HPV mRNA E6/E7 (05/31/2019 11:31 AM PULLING UNIT FLOORHAND) CLINICAL INFORMATION: [facility] [place] Comment:Information not prov ided LMP 05/15/2019 [facility] - Previous Pap [facility] - Comment:INFORMATION NOT PROV IDED Prev. Bx [facility] - Comment:INFORMATION NOT PROV IDED SOURCE: [facility] - Comment:Cervix, Endocervix Pap, specimen adequacy [facility] - Comment: Satisfactory for evaluation. Endocervical/transformation zone component present. HPV interp [facility] - Comment:Negative for intraep ithelial lesion or malignancy. COMMENTS [facility] - Comment: This Pap test has been evaluated with computer assisted technology. Tongue Binder [facility] - Comment: HERNANDEZ, CT(ASCP) CT Screening location: [facility] Administration ALEX Anguiano [facility] Review ground operations crew member [facility] - Comment: KMS, CT(ASCP) CT Screening location: [place] [address] Administration ALEX Anguiano [facility] Comment [facility] - Comment: EXPLANATORY NOTE: [...] High Risk E6/E7 Not Detected Not Detected [facility] - [place] Comment: This test was performed using the APTIMA HPV Assay ([employer] This assay detects E6/E7 viral messenger RNA (mRNA) from 14 high-risk HPV types (16,18,31,33,35,39,45,51,52,56,58,59,66,68). The analytical performance characteristics of this assay have been determined by [facility]. The modifications have not been cleared or approved by the FDA. This assay has been validated pursuant to the CLIA regulations and is used for clinical purposes. Cervical 05/31/2019 11:3 1 AM PULLING UNIT FLOORHAND 06/03/2019 12:37 PM PULLING UNIT FLOORHAND Narrative Resulting Agency Comment Performing Organization Information: Site ID: [place] Name: [facility] Address: [address] [address] Director: Jacques Bull D.O., MPH Site ID: [place] [facility] Address: [address] [address] [place] [address] Director: Dennis Flores Stephanie Ward NP LAB PATHOLOGY ORDERABLES Final Result [facility] - [place] [facility] - [place] from Last 3 Months or Most Recently Relevant to Health Maintenance Insurance [facility] CHOICE PLUS Care Teams Integrated Circuit Layout Designer Relationship Specialty Start Date End Date Aj John MD [address] [place] [id number] PCP - General 06/02/16
--- OUTSIDE RECORDS SUMMARY | 2024-12-17 10:24 | XMS_ITS | Clinical Summary ---
Author Organization [facility] Address [address] [facility] [place] [address] Care Team Providers Care Corporate Tax Preparer Name Role Phone Unavailable Primary Care Provider Unavailabl e Source Comments [facility],non-owned Affiliates and Associated Physician Practices is amultiple site organization consisting of ambulatory clinics and hospital sitesin [place], [place], [place] and [place]. This disclosure is being madepursuant to the Care Everywhere program and may not contain all information available regarding this patient. Last updated 18.[facility] Allergies Active Allergy Reactions Criticality Noted Date Comments Penicillins Rash Medium 05/27/2017 Medications * Be aware that medications may not be up to date on this document. Alwaysverify current medications with the patient. albuterol HFA (VENTOLIN HFA) 108 (90 BASE) MCG/ACT inhaler Inhale 2 (two) puffs by mouth every 6 hours as needed for Shortness of Breath or Wheezing Active montelukast (SINGULAIR) 10 MG tablet Take 1 (one) tablet by mouth once daily 10/09/19 21 Active ADVAIR DISKUS 250-50 MCG/DOSE inhaler Inhale 1 (one) puff by mouth 2 times daily 10/14/19 21 Active fluticasone propionate (FLONASE) 50 MCG/ACT nasal spray [place] 1 spray into each nostril once daily 07/17/19 21 Active vitamin D, cholecalciferol, 50 MCG (2000 [...] Take 1 tablet by mouth at bedtime 05/03/19 Active FEROSUL 325 (65 Fe) MG tablet Take 325 mg by mouth once daily 05/04/19 Active meloxicam (MOBIC) 7.5 MG tabletIndications: Primary osteoarthritis of left knee,Primary osteoarthritis of right knee Take 1 (one) tablet by mouth once daily 60 tablet 1 06/15/19 Active Additional Information Patient not taking.Reported on [...] Date Smoking Tobacco: Never Smokeless Tobacco: Never Comments Unknown Sex and Gender Information Value Date Recorded Sex Assigned at Not on file Legal Sex Female 10:05 AM COMPRESSOR MECHANIC Gender Identity Not on file Sexual Orientation Not on file Last Filed Vital Signs Vital Sign Reading Time Taken Comments Blood Pressure 134/75 05/25/2021 8:46 AM COMPRESSOR MECHANIC Pulse 90 05/25/2021 8:46 AM COMPRESSOR MECHANIC Temperature 36.6 C (97.9 F) 12/04/2020 9:58 AM CDT Respiratory Rate 16 05/25/2021 8:46 AM COMPRESSOR MECHANIC Oxygen Saturation 99% 05/25/2021 8:46 AM COMPRESSOR MECHANIC Inhaled Oxygen Concentration - - Weight 107.5 kg (237 lb) 05/25/2021 8:46 AM COMPRESSOR MECHANIC Height 170.2 cm (5' 7) 05/25/2021 8:46 AM COMPRESSOR MECHANIC Body Mass Index 37.12 05/25/2021 8:46 AM COMPRESSOR MECHANIC Plan of Treatment Health Maintenance Due Date Last Done Comments COLOGUARD (AGES 45-75) - COL ON CA SCREENING 1978 COLON MONITORING 1978 COLONOSCOPY - COLON CA SCREENING 1978 CT COLONOGRAPHY - COLON CA SCREENING 1978 Colorectal Cancer Screening 1978 FIT - COLON CA SCREENING 1978 FLEX SIG - COLON CA SCREENING 1978 LIPID TESTING 1978 MAMMOGRAM 1978 HIV SCREENING 1993 HEPATITIS C SCREENING 02/09/1996 DTAP/TDAP/TD VACCINES (1 - Tdap) 1997 HEPATITIS B VACCINE (1 of 3 - 19+ 3-dose series) 1997 PNEUMOCOCCAL VACCINE (1 of 2 - PCV) 1997 PAP SMEAR 1999 COVID-19 VACCINE (1 - 2023-2 5 season) 2023 DEPRESSION SCREENING 04/24/2024 INFLUENZA VACCINE (#1) 2024 ZOSTER VACCINE (1 of 2) 02/14/2028 HIB [...] on patient's age to complete this topic Insurance [facility] * Guarantor: OSIRIS MESSER Account Type Relation to Patient Date of Phone Billing Address Personal/Family [address] [place] [address] [facility] SELF PAY NO INSURANCE Member Subscriber Plan / Payer (Ef fective for All Dates) Name:Osiris Messer Member ID:Not on file Relation to Subscriber:Not on file Name:OSIRIS MESSER Subscriber ID:Not on file (Home) Address: [address] [place] [address] Payer ID:Not on file Group ID:Not on file Type:Self Pay Address: [place], [place] * Guarantor: OSIRIS MESSER Account Type Relation to Patient Date of Phone Billing Address Personal/Family [address] [place] [address] [employer] SELF PAY NO INSURANCE Member Subscriber Plan / Payer (Ef fective for All Dates) Name:Osiris Messer Member ID:Not on file Relation to Subscriber:Not on file Name:OSIRIS MESSER Subscriber ID:Not on file (Home) Address: [address] [place] [address] [place] [address] Payer ID:Not on file Group ID:Not on file Type:Self Pay Address: [place], [place] * Guarantor: OSIRIS MESSER Account Type Relation to Patient Date of Phone Billing Address Personal/Family [address] [place] [address] [facility] SELF PAY NO INSURANCE Member Subscriber Plan / Payer (Ef fective for All Dates) Name:Osiris Messer Member ID:Not on file Relation to Subscriber:Not on file Name:OSIRIS MESSER Subscriber ID:Not on file (Home) Address: [address] [place] [address] [place] [address] Payer ID:Not on file Group ID:Not on file Type:Self Pay Address: [place], [place]
== END 2024-12-17 09:58 | disposition home or self-care (01) ==
LOC: CHSLAB 10:00
PROVIDERS: PCP Nurse Practitioner Family; Visit Provider Nurse Practitioner Family
DX: M79.672 Pain in left foot (principal)
CPT/HCPCS: 73630; 73650

== ENCOUNTER 2024-12-21 09:17 | Outpatient (CLI) | payer OTHER, SELFPAY ==
--- OUTSIDE RECORDS SUMMARY | 2024-12-21 09:21 | XMS_ITS | Clinical Summary ---
Author Organization [facility] [employer] Address [address] [place] [address] Care Team Providers Care Marketing Communications Manager Name Role Phone Unavailable Primary Care Provider Unavailabl e Source Comments [facility],non-owned Affiliates and Associated Physician Practices is amultiple site organization consisting of ambulatory clinics and hospital sitesin [place], [place], [place] and [place]. This disclosure is being madepursuant to the Care Everywhere program and may not contain all information available regarding this patient. Last updated 18.[facility] [employer] Allergies Active Allergy Reactions Criticality Noted Date [...] fluticasone propionate (FLONASE) 50 MCG/ACT nasal spray [place] 1 spray into each nostril once daily [...] on file Legal Sex Female 10:05 AM MANAGER FEDERAL Gender Identity Not on file Sexual Orientation Not on file Last Filed Vital Signs Vital Sign Reading Time Taken Comments Blood Pressure 134/75 05/25/2021 8:46 AM MANAGER FEDERAL Pulse 90 05/25/2021 8:46 AM MANAGER FEDERAL Temperature 36.6 C (97.9 F) 12/04/2020 9:58 AM CDT Respiratory Rate 16 05/25/2021 8:46 AM MANAGER FEDERAL Oxygen Saturation 99% 05/25/2021 8:46 AM MANAGER FEDERAL Inhaled Oxygen Concentration - - Weight 107.5 kg (237 lb) 05/25/2021 8:46 AM MANAGER FEDERAL Height 170.2 cm (5' 7) 05/25/2021 8:46 AM MANAGER FEDERAL Body Mass Index 37.12 05/25/2021 8:46 AM MANAGER FEDERAL Plan of Treatment Health Maintenance Due Date [...] patient's age to complete this topic Insurance [facility] Member Subscriber Plan / Payer (Ef fective 2020-Present) Name:Osiris Messer Relation to Subscriber:Self Name:Osiris Messer Payer ID:[id number] ([facility]) Type:PPO Address: [address] [address] [place] [address] * Guarantor: OSIRIS MESSER Account Type Relation to Patient Date of Phone Billing Address Personal/Family [address] [place] [address] [facility] Member Subscriber Plan / Payer (Ef fective for All Dates) Name:Osiris Messer Relation to Subscriber:Self Name:Osiris Messer Payer ID:[id number] ([facility]) Type:Commercial SELF PAY NO INSURANCE Member Subscriber Plan / Payer (Ef fective for All Dates) Name:Osiris Messer Member ID:Not on file Relation to Subscriber:Not on file Name:OSIRIS MESSER Subscriber ID:Not on file (Home) Address: [address] [place] [address] Payer ID:Not on file Group ID:Not on file Type:Self Pay Address: [place], [place] * Guarantor: OSIRIS MESSER Account Type Relation to Patient Date of Phone Billing Address Personal/Family [address] [place] [address] [facility] SELF PAY NO INSURANCE Member Subscriber Plan / Payer (Ef fective for All Dates) Name:Osiris Messer Member ID:Not on file Relation to Subscriber:Not on file Name:OSIRIS MESSER Subscriber ID:Not on file (Home) Address: [address] [place] [address] [place] [address] Payer ID:Not on file Group ID:Not on file Type:Self Pay Address: [place], [place] * Guarantor: OSIRIS MESSER Account Type Relation to Patient Date of Phone Billing Address Personal/Family [address] [place] [address] [facility] SELF PAY NO INSURANCE Member Subscriber Plan / Payer (Ef fective for All Dates) Name:Osiris Messer Member ID:Not on file Relation to Subscriber:Not on file Name:OSIRIS MESSER Subscriber ID:Not on file (Home) Address: [address] [place] [address] [place] [id number] Payer ID:Not on file Group ID:Not on file Type:Self Pay Address: [place], [place]
--- OUTSIDE RECORDS SUMMARY | 2024-12-21 09:21 | XMS_ITS | Clinical Summary ---
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 Bx [facility] - Comment:INFORMATION NOT PROV IDED SOURCE: [facility] - Comment:Cervix, Endocervix Pap, specimen adequacy [facility] - Comment: Satisfactory for evaluation. Endocervical/transformation zone component present. HPV interp [facility] - Comment:Negative for intraep ithelial lesion or malignancy. COMMENTS [facility] - Comment: This Pap test has been evaluated with computer assisted technology. Binding End Stitcher [facility] - Comment: HERNANDEZ, CT(ASCP) CT Screening location: [facility] Review lathe machinist [facility] - Comment: KMS, CT(ASCP) CT Screening location: [place] [address] Administration [facility] Comment [facility] - Comment: EXPLANATORY NOTE: The Pap [...] High Risk E6/E7 Not Detected Not Detected [facility] [place] Comment: This test was performed using the APTIMA HPV Assay ([employer] This assay detects E6/E7 viral messenger RNA (mRNA) from 14 high-risk HPV types (16,18,31,33,35,39,45,51,52,56,58,59,66,68). The analytical performance characteristics of this assay have been determined by [facility]. The modifications have not been cleared or approved by the FDA. This assay has been validated pursuant to the CLIA regulations and is used for clinical purposes. Cervical 05/31/2019 11:3 1 AM DIRECTOR OF VITAL STATISTICS 06/03/2019 12:37 PM DIRECTOR OF VITAL STATISTICS Narrative Resulting Agency Comment Performing Organization Information: Site ID: [id number] Name: [email or web address] Address: [address] [place] [address] Director: Jacques Bull D.O., MPH Site ID: [id number] [facility] Address: [address] [place] [address] Director: Dennis Flores Stephanie Ward NP LAB PATHOLOGY ORDERABLES Final Result [facility] - Deena Prieto [place] [facility] [place] from Last 3 Months or Most Recently Relevant to Health Maintenance Insurance [facility] H[facility]/PPO Address[facility] [address] [place] [address] [facility] CHOICE PLUS [facility] HMO/[place]: [place] [address] Care Teams Lamp Replacer Relationship Specialty Start Date End Date Aj John MD [address] [place] [id number] PCP - General 06/02/16
[2024-12-21 09:39] LABS: Hematocrit 36.5 % (35.0-49.0); Hemoglobin 11.2 g/dL (12.0-15.0); Immature Granulocyte Percent A 0.4 % (0.0-0.0); Lymphocytes Absolute Auto 1.64 K/mm3 (1.10-4.50); Mean Corpuscular HGB Conc 30.7 g/dL (32-36); Mean Corpuscular Hemoglobin 25.3 pg (27.0-31.0); Mean Corpuscular Volume 82.6 fL (78.0-102.0); Nucleated Red Blood Cells Absolute Auto 0.00 K/mm3 (0.00-0.00); Nucleated Red Blood Cells Perc 0.0 % (0-0.0); Platelet Count Result 325 K/mm3 (150-420); Red Blood Count 4.42 M/mm3 (4.20-5.40); White Blood Count 7.5 K/mm3 (4.8-10.8)
[2024-12-21 09:56] LABS: Alanine Aminotransferase 15 U/L (6-35); Albumin Level 4.2 g/dL (3.5-5.1); Alkaline Phosphatase 79 U/L (38-126); Anion Gap 8 mmol/L (4-12); Aspartate Amino Transferase 21 U/L (14-36); Bilirubin,Total 0.6 mg/dL (0.2-1.3); Blood Urea Nitrogen 13 mg/dL (7-17); Calcium 9.5 mg/dL (8.4-10.2); Carbon Dioxide 27 mmol/L (22-30); Chloride 105 mmol/L (98-107); Cholesterol 208 mg/dL (0-200); Estimated Glomerular Filt Rate 58; Glucose 100 mg/dL (65-110); HDL Direct 63 mg/dL; Osmolality Calculated 290 mOsm/kg (285-295); Potassium 4.8 mmol/L (3.4-5.0); Sodium 140 mmol/L (137-145); Total Protein 7.0 g/dL (6.3-8.2); Triglycerides 83 mg/dL (<150)
[2024-12-21 10:05] LABS: Hemoglobin A1C 5.9 % (<5.7)
[2024-12-21 10:16] LABS: Total Protein Urine Random < 7 mg/dL; Ur Ttl Prot Creatinine Ratio 0.07 mg/mg (0-0.20)
[2024-12-21 11:58] LABS: Thyroid Stimulating Hormone Reflex 3.520 uIU/mL (0.465-4.68)
== END 2024-12-21 09:18 | disposition home or self-care (01) ==
LOC: CHSLAB 09:17
PROVIDERS: Internal Medicine Nephrology; PCP Nurse Practitioner Family; Visit Provider Nurse Practitioner Family
DX: Z00.00 Encounter for general adult medical examination without abnormal findings (principal); N18.2 Chronic kidney disease, stage 2 (mild)
CPT/HCPCS: 36415; 80053; 80061; 80069; 82570; 83036; 84100; 84156; 84443; 85025